=== PATIENT | male | born 1955 | race Caucasian/White ===

== ENCOUNTER → 2018-08-17 09:06 | Outpatient (CLI) | payer OTHER, SELFPAY ==
[2018-08-17 12:33] LABS: Hematocrit 45.4 % (40-54); Hemoglobin 15.4 g/dl (13.0-16.5); Mean Corp Hgb Conc 33.9 g/gl (32-36); Mean Corpuscular Hgb 29.3 pg (27.0-32.0); Mean Corpuscular Volume 86.5 fL (80-94); Mean Platelet Vol. 11.2 fl (6.2-12.0); Platelet Count 251 K/mm3 (150-450); RBC Distribution Width CV 12.7 % (11.6-14.6); RBC Distribution Width SD 39.9 fl (35.1-43.9); Red Blood Count 5.25 M/mm3 (4.6-6.2); White Blood Count 5.9 K/mm3 (4.4-11.0)
[2018-08-17 12:41] LABS: Scan Indicated on CBC? Y/N NO
[2018-08-17 12:43] LABS: Hemoglobin A1c 5.9 % (4.2-6.3)
[2018-08-17 12:47] LABS: Progesterone Level 0.35 ng/mL (See Comment); Vitamin B12 482 pg/mL (211-911); Vitamin D,25 Hydroxy 16.2 ng/mL (29.95-100.01)
[2018-08-17 12:54] LABS: Homocysteine 9.7 umol/L (3.2-10.7)
[2018-08-17 13:40] LABS: ALB/GLOB Ratio 1.1 RATIO (0.9-2.4); AST(SGOT) 20 U/L (15-37); Alanine Aminotransfer ALT/SGPT 38 U/L (16-61); Alkaline Phosphatase 56 U/L (45-117); Anion Gap 6 (5-15); BUN 14 mg/dL (7-18); BUN/Creat Ratio 12.1 RATIO (10-20); CRP, High Sensitivity Cardiac 0.58 mg/L; Calcium,Total 8.8 mg/dL (8.5-10.1); Chloride 106 mmol/L (98-107); Cholesterol 214 mg/dL (200); Creatinine, Serum 1.16 mg/dL (0.70-1.30); EST Glomerular Filtration Rate 67 mL/min (>60); Est Glom Filt Rate - Afr Amer 81 mL/min (>60); Estradiol 29.1 pg/mL; Follicle Stimulating Hormone 25.9 mIU/mL; Free T3 3.1 pg/mL (2.18-3.98); Globulin 3.5 g/dL (2.2-4.2); Glucose 111 mg/dL (74-106); High Density Lipoprotein 49 mg/dL; Iron 117 ug/dL (65-175); Luteinizing Hormone 10.5 mIU/mL; Magnesium 2.3 mg/dL (1.6-2.6); Prolactin 3.7 ng/mL; Protein, Total 7.5 g/dL (6.4-8.2); Sodium Level 141 mmol/L (136-145); T4 Free Direct 0.96 ng/dL (0.76-1.46); T4 Total, Thyroxin 9.1 ug/dL (4.5-12.1); Triglycerides 201 mg/dL; Very Low Density Lipoprotein 40 mg/dL (5-40)
[2018-08-20 16:08] LABS: DHEA Sulfate 132.8 ug/dL (48.9-344.2); Insulin Like Growth Factor 155 ng/mL (49-188); Testosterone, % Free 3.47 % (1.50-4.20); Testosterone, Free 12.94 ng/dL (5.00-21.00)
[2018-08-21 13:50] LABS: Sex Hormone-binding Globulin 39.5 nmol/L (19.3-76.4); Testosterone, Total 373 ng/dL (264-916)
== END ==
PROVIDERS: Family Provider Family Medicine; PCP Family Medicine; Referring Provider Registered Nurse; Visit Provider Registered Nurse
DX: R53.82 Chronic fatigue, unspecified (principal); M62.81 Muscle weakness (generalized); E66.9 Obesity, unspecified
CPT/HCPCS: 36415; 80053; 80061; 82306; 82533; 82607; 82627; 82670; 82746; 83001; 83002; 83036; 83090; 83540; 83735; 84144; 84146; 84153; 84270; 84305; 84402; 84403; 84436; 84439; 84443; 84481; 85027; 86141; 82626; G0103

== ENCOUNTER → 2018-11-06 08:26 | Outpatient (CLI) | payer OTHER, SELFPAY ==
[2018-11-06 10:26] LABS: Hematocrit 48.5 % (40-54); Hemoglobin 16.2 g/dl (13.0-16.5); Mean Corp Hgb Conc 33.4 g/gl (32-36); Mean Corpuscular Hgb 29.4 pg (27.0-32.0); Mean Platelet Vol. 11.5 fl (6.2-12.0); Platelet Count 264 K/mm3 (150-450); RBC Distribution Width CV 13.1 % (11.6-14.6); RBC Distribution Width SD 42.2 fl (35.1-43.9); Red Blood Count 5.51 M/mm3 (4.6-6.2); White Blood Count 6.2 K/mm3 (4.4-11.0)
[2018-11-06 10:38] LABS: Scan Indicated on CBC? Y/N NO
[2018-11-06 10:46] LABS: ALB/GLOB Ratio 1.1 RATIO (0.9-2.4); AST(SGOT) 18 U/L (15-37); Alanine Aminotransfer ALT/SGPT 25 U/L (16-61); Albumin, Serum 3.4 g/dL (3.2-5.0); Alkaline Phosphatase 44 U/L (45-117); Anion Gap 4 (5-15); BUN 12 mg/dL (7-18); BUN/Creat Ratio 9.6 RATIO (10-20); Calcium,Total 8.5 mg/dL (8.5-10.1); Chloride 105 mmol/L (98-107); Creatinine, Serum 1.25 mg/dL (0.70-1.30); EST Glomerular Filtration Rate 62 mL/min (>60); Est Glom Filt Rate - Afr Amer 75 mL/min (>60); Estradiol 82.7 pg/mL; Globulin 3.2 g/dL (2.2-4.2); Glucose 93 mg/dL (74-106); Protein, Total 6.6 g/dL (6.4-8.2); Sodium Level 138 mmol/L (136-145)
[2018-11-06 10:51] LABS: Progesterone Level 1.17 ng/mL (See Comment); Vitamin B12 274 pg/mL (211-911)
[2018-11-06 13:12] LABS: Cholesterol 163 mg/dL (200); High Density Lipoprotein 44 mg/dL; Triglycerides 120 mg/dL; Very Low Density Lipoprotein 24 mg/dL (5-40)
[2018-11-09 08:06] LABS: Testosterone, % Free 3.89 % (1.50-4.20)
[2018-11-09 12:52] LABS: DHEA Sulfate 202.7 ug/dL (48.9-344.2); Testosterone, Total > 1500 ng/dL (264-916)
== END ==
PROVIDERS: Family Provider Family Medicine; PCP Family Medicine; Referring Provider Registered Nurse; Visit Provider Registered Nurse
DX: E29.1 Testicular hypofunction (principal)
CPT/HCPCS: 36415; 80053; 80061; 82306; 82607; 82627; 82670; 82746; 84144; 84402; 84403; 85027; 82626

== ENCOUNTER → 2019-02-09 07:10 | Outpatient (CLI) | payer OTHER, SELFPAY ==
[2019-02-09 10:10] LABS: Hematocrit 49.3 % (40-54); Hemoglobin 16.5 g/dL (13.0-16.5); Mean Corp Hgb Conc 33.5 g/dL (32-36); Mean Corpuscular Hgb 29.9 pg (27.0-32.0); Mean Corpuscular Volume 89.5 fL (80-94); Platelet Count 260 K/mm3 (150-450); RBC Distribution Width CV 12.7 % (11.6-14.6); RBC Distribution Width SD 41.8 fl (35.1-43.9); Red Blood Count 5.51 M/mm3 (4.6-6.2); White Blood Count 7.1 K/mm3 (4.4-11.0)
[2019-02-09 10:28] LABS: Hemoglobin A1c 5.7 % (4.2-6.3)
[2019-02-09 10:56] LABS: ALB/GLOB Ratio 1.2 RATIO (0.9-2.4); AST(SGOT) 21 U/L (15-37); Alanine Aminotransfer ALT/SGPT 30 U/L (16-61); Albumin, Serum 3.7 g/dL (3.2-5.0); Alkaline Phosphatase 43 U/L (45-117); Anion Gap 7 (5-15); BUN 11 mg/dL (7-18); BUN/Creat Ratio 9.1 RATIO (10-20); Calcium,Total 8.7 mg/dL (8.5-10.1); Chloride 104 mmol/L (98-107); Cholesterol 159 mg/dL (200); Creatinine, Serum 1.21 mg/dL (0.70-1.30); EST Glomerular Filtration Rate 64 mL/min (>60); Est Glom Filt Rate - Afr Amer 78 mL/min (>60); Follicle Stimulating Hormone 0.7 mIU/mL; Free T3 3.3 pg/mL (2.18-3.98); Globulin 3.1 g/dL (2.2-4.2); Glucose 103 mg/dL (74-106); High Density Lipoprotein 43 mg/dL; Iron 122 ug/dL (65-175); Luteinizing Hormone < 0.2 mIU/mL; Magnesium 2.1 mg/dL (1.6-2.6); Potassium 3.9 mmol/L (3.5-5.1); Prolactin 14.4 ng/mL; Protein, Total 6.8 g/dL (6.4-8.2); Sodium Level 142 mmol/L (136-145); T4 Free Direct 0.79 ng/dL (0.76-1.46); T4 Total, Thyroxin 6.3 ug/dL (4.5-12.1); Thyroid Stim Hormone (TSH) 2.55 uIU/mL (0.358-3.74); Triglycerides 100 mg/dL; Very Low Density Lipoprotein 20 mg/dL (5-40)
[2019-02-09 11:09] LABS: Vitamin B12 327 pg/mL (211-911); Vitamin D,25 Hydroxy 40.4 ng/mL (29.95-100.01)
[2019-02-12 12:08] LABS: DHEA Sulfate 177.4 ug/dL (48.9-344.2); Insulin Like Growth Factor 166 ng/mL (49-188); Testosterone, % Free 3.76 % (1.50-4.20); Testosterone, Free 46.02 ng/dL (5.00-21.00)
[2019-02-12 16:15] LABS: Sex Hormone-binding Globulin 28.7 nmol/L (19.3-76.4); Testosterone, Total 1224 ng/dL (264-916)
== END ==
PROVIDERS: Family Provider Family Medicine; PCP Family Medicine
DX: M62.81 Muscle weakness (generalized) (principal); E29.1 Testicular hypofunction
CPT/HCPCS: 36415; 80053; 80061; 82306; 82533; 82607; 82627; 82670; 82746; 83001; 83002; 83036; 83090; 83540; 83735; 84146; 84270; 84305; 84402; 84403; 84436; 84439; 84443; 84481; 85027; 86141; 82626

== ENCOUNTER → 2019-05-25 09:46 | Outpatient (CLI) | payer OTHER, SELFPAY ==
[2019-05-25 12:32] LABS: Hematocrit 48.6 % (40-54); Hemoglobin 16.3 g/dL (13.0-16.5); Mean Corp Hgb Conc 33.5 g/dL (32-36); Mean Corpuscular Hgb 29.6 pg (27.0-32.0); Mean Corpuscular Volume 88.2 fL (80-94); Mean Platelet Vol. 11.1 fl (6.2-12.0); Platelet Count 275 K/mm3 (150-450); RBC Distribution Width CV 12.3 % (11.6-14.6); RBC Distribution Width SD 39.9 fl (35.1-43.9); Red Blood Count 5.51 M/mm3 (4.6-6.2); White Blood Count 7.3 K/mm3 (4.4-11.0)
[2019-05-25 12:46] LABS: Progesterone Level 2.64 ng/mL (See Comment); Vitamin B12 362 pg/mL (211-911); Vitamin D,25 Hydroxy 48.8 ng/mL (29.95-100.01)
[2019-05-25 12:47] LABS: ALB/GLOB Ratio 1.1 RATIO (0.9-2.4); AST(SGOT) 16 U/L (15-37); Alanine Aminotransfer ALT/SGPT 34 U/L (16-61); Albumin, Serum 3.7 g/dL (3.2-5.0); Alkaline Phosphatase 42 U/L (45-117); Anion Gap 2 (5-15); BUN 12 mg/dL (7-18); BUN/Creat Ratio 9.4 RATIO (10-20); Calcium,Total 9.1 mg/dL (8.5-10.1); Chloride 103 mmol/L (98-107); Cholesterol 175 mg/dL (200); Creatinine, Serum 1.28 mg/dL (0.70-1.30); EST Glomerular Filtration Rate 60 mL/min (>60); Est Glom Filt Rate - Afr Amer 73 mL/min (>60); Globulin 3.4 g/dL (2.2-4.2); Glucose 105 mg/dL (74-106); High Density Lipoprotein 42 mg/dL; PSA,Total - Annual Screen 0.66 ng/mL (0.00-4.00); Potassium 3.8 mmol/L (3.5-5.1); Protein, Total 7.1 g/dL (6.4-8.2); Sodium Level 137 mmol/L (136-145); Triglycerides 152 mg/dL; Very Low Density Lipoprotein 30 mg/dL (5-40)
[2019-05-25 12:48] LABS: Hemoglobin A1c 5.7 % (4.2-6.3)
[2019-05-29 20:07] LABS: Testosterone, % Free 3.43 % (1.50-4.20); Testosterone, Free 42.88 ng/dL (5.00-21.00)
[2019-05-30 10:31] LABS: Testosterone, Total 1250 ng/dL (264-916)
== END ==
PROVIDERS: PCP Family Medicine; Referring Provider Nurse Practitioner Family; Visit Provider Nurse Practitioner Family
DX: R53.82 Chronic fatigue, unspecified (principal); M62.81 Muscle weakness (generalized)
CPT/HCPCS: 36415; 80053; 80061; 82306; 82607; 82627; 82670; 82746; 83036; 84144; 84153; 84402; 84403; 85027; 82626; G0103

== ENCOUNTER → 2019-11-08 07:16 | Outpatient (CLI) | payer OTHER, SELFPAY ==
[2019-11-08 09:50] LABS: Hemoglobin 16.4 g/dL (13.0-16.5); Mean Corp Hgb Conc 33.5 g/dL (32-36); Mean Corpuscular Hgb 29.9 pg (27.0-32.0); Mean Corpuscular Volume 89.4 fL (80-94); Mean Platelet Vol. 10.8 fl (6.2-12.0); Platelet Count 263 K/mm3 (150-450); RBC Distribution Width CV 12.2 % (11.6-14.6); RBC Distribution Width SD 40.3 fl (35.1-43.9); Red Blood Count 5.48 M/mm3 (4.6-6.2); White Blood Count 6.7 K/mm3 (4.4-11.0)
[2019-11-08 10:06] LABS: Vitamin B12 290 pg/mL (211-911); Vitamin D,25 Hydroxy 93.2 ng/mL
[2019-11-08 10:10] LABS: Hemoglobin A1c 5.5 % (3.8-5.6)
[2019-11-08 10:21] LABS: ALB/GLOB Ratio 1.1 RATIO (0.9-2.4); AST(SGOT) 15 U/L (15-37); Alanine Aminotransfer ALT/SGPT 24 U/L (16-61); Albumin, Serum 3.5 g/dL (3.2-5.0); Alkaline Phosphatase 38 U/L (45-117); Anion Gap 5 (5-15); BUN 12 mg/dL (7-18); BUN/Creat Ratio 9.7 RATIO (10-20); Calcium,Total 8.4 mg/dL (8.5-10.1); Chloride 104 mmol/L (98-107); Cholesterol 169 mg/dL (200); Creatinine, Serum 1.24 mg/dL (0.70-1.30); EST Glomerular Filtration Rate 62 mL/min (>60); Est Glom Filt Rate - Afr Amer 75 mL/min (>60); Estradiol 51.3 pg/mL; Globulin 3.3 g/dL (2.2-4.2); Glucose 113 mg/dL (74-106); High Density Lipoprotein 44 mg/dL; Potassium 3.6 mmol/L (3.5-5.1); Protein, Total 6.8 g/dL (6.4-8.2); Sodium Level 138 mmol/L (136-145); Triglycerides 127 mg/dL; Very Low Density Lipoprotein 25 mg/dL (5-40)
[2019-11-12 12:08] LABS: Testosterone, % Free 2.83 % (1.50-4.20); Testosterone, Free 34.72 ng/dL (5.00-21.00)
[2019-11-12 21:15] LABS: Testosterone, Total 1227 ng/dL (264-916)
== END ==
PROVIDERS: PCP Family Medicine; Visit Provider Nurse Practitioner Family
DX: R53.82 Chronic fatigue, unspecified (principal); M62.81 Muscle weakness (generalized); R68.82 Decreased libido; E66.9 Obesity, unspecified
CPT/HCPCS: 36415; 80053; 80061; 82306; 82607; 82627; 82670; 82746; 83036; 84144; 84402; 84403; 85027; 82626

== ENCOUNTER → 2020-06-02 07:12 | Outpatient (CLI) | payer MEDICARE, SELFPAY ==
[2020-06-02 09:53] LABS: Hemoglobin 15.6 g/dL (13.0-16.5); Mean Corp Hgb Conc 33.2 g/dL (32-36); Mean Corpuscular Hgb 29.4 pg (27.0-32.0); Mean Corpuscular Volume 88.7 fL (80-94); Mean Platelet Vol. 11.5 fl (6.2-12.0); Platelet Count 252 K/mm3 (150-450); RBC Distribution Width CV 12.4 % (11.6-14.6); RBC Distribution Width SD 40.5 fl (35.1-43.9); White Blood Count 6.9 K/mm3 (4.4-11.0)
[2020-06-02 10:11] LABS: Progesterone Level 0.74 ng/mL (See Comment); T3 Total - Triiodothyronine 1.29 ng/mL (0.6-1.81); Vitamin B12 330 pg/mL (211-911); Vitamin D,25 Hydroxy 70.5 ng/mL
[2020-06-02 11:11] LABS: Hemoglobin A1c 5.5 % (3.8-5.6)
[2020-06-02 13:03] LABS: ALB/GLOB Ratio 1.1 RATIO (0.9-2.4); AST(SGOT) 13 U/L (15-37); Alanine Aminotransfer ALT/SGPT 30 U/L (16-61); Albumin, Serum 3.8 g/dL (3.2-5.0); Alkaline Phosphatase 43 U/L (45-117); Anion Gap 4 (5-15); BUN 12 mg/dL (7-18); BUN/Creat Ratio 9.5 RATIO (10-20); CRP, High Sensitivity Cardiac 0.46 mg/L; Calcium,Total 9.1 mg/dL (8.5-10.1); Chloride 105 mmol/L (98-107); Cholesterol 203 mg/dL (200); Creatinine, Serum 1.26 mg/dL (0.70-1.30); EST Glomerular Filtration Rate 61 mL/min (>60); Est Glom Filt Rate - Afr Amer 74 mL/min (>60); Estradiol 42.5 pg/mL; Follicle Stimulating Hormone 1.3 mIU/mL; Globulin 3.4 g/dL (2.2-4.2); Glucose 101 mg/dL (74-106); High Density Lipoprotein 50 mg/dL; Iron 178 ug/dL (65-175); Luteinizing Hormone < 0.2 mIU/mL; Magnesium 2.2 mg/dL (1.6-2.6); PSA,Total - Annual Screen 0.85 ng/mL (0.00-4.00); Potassium 3.8 mmol/L (3.5-5.1); Prolactin 7.6 ng/mL; Protein, Total 7.2 g/dL (6.4-8.2); Sodium Level 140 mmol/L (136-145); T4 Free Direct 0.93 ng/dL (0.76-1.46); T4 Total, Thyroxin 7.1 ug/dL (4.5-12.1); Thyroid Stim Hormone (TSH) 2.12 uIU/mL (0.358-3.74); Triglycerides 113 mg/dL; Very Low Density Lipoprotein 23 mg/dL (5-40)
[2020-06-06 12:07] LABS: Insulin Like Growth Factor 149 ng/mL (59-230); Testosterone, % Free 3.79 % (1.50-4.20); Testosterone, Free 23.27 ng/dL (5.00-21.00)
[2020-06-07 08:48] LABS: Sex Hormone-binding Globulin 24.8 nmol/L (19.3-76.4); Testosterone, Total 614 ng/dL (264-916)
== END ==
PROVIDERS: PCP Family Medicine; Referring Provider Nurse Practitioner Family; Visit Provider Nurse Practitioner Family
DX: M62.81 Muscle weakness (generalized) (principal); R53.82 Chronic fatigue, unspecified; R68.82 Decreased libido; E29.1 Testicular hypofunction
CPT/HCPCS: 36415; 80053; 80061; 82306; 82533; 82607; 82627; 82670; 82746; 83001; 83002; 83036; 83090; 83540; 83735; 84144; 84146; 84153; 84270; 84305; 84402; 84403; 84436; 84439; 84443; 84480; 85027; 86141; 82626; G0103

== ENCOUNTER → 2020-10-03 15:30 | Outpatient (CLI) | payer MEDICARE, SELFPAY ==
[2020-10-03 18:02] LABS: Hematocrit 47.1 % (40-54); Hemoglobin 15.7 g/dL (13.0-16.5); Mean Corp Hgb Conc 33.3 g/dL (32-36); Mean Corpuscular Hgb 29.5 pg (27.0-32.0); Mean Corpuscular Volume 88.4 fL (80-94); Platelet Count 307 K/mm3 (150-450); RBC Distribution Width CV 12.5 % (11.6-14.6); RBC Distribution Width SD 40.3 fl (35.1-43.9); Red Blood Count 5.33 M/mm3 (4.6-6.2); White Blood Count 7.9 K/mm3 (4.4-11.0)
[2020-10-03 18:26] LABS: Vitamin B12 260 pg/mL (211-911); Vitamin D,25 Hydroxy 63.2 ng/mL
[2020-10-03 18:27] LABS: Hemoglobin A1c 5.3 % (3.8-5.6)
[2020-10-03 19:05] LABS: Homocysteine 14.1 umol/L (3.2-10.7)
[2020-10-03 19:17] LABS: BUN 13 mg/dL (7-18); BUN/Creat Ratio 10.3 RATIO (10-20); Creatinine, Serum 1.26 mg/dL (0.70-1.30); Glucose 88 mg/dL (74-106); Protein, Total 7.1 g/dL (6.4-8.2)
[2020-10-03 19:18] LABS: ALB/GLOB Ratio 1.1 RATIO (0.9-2.4); AST(SGOT) 19 U/L (15-37); Alanine Aminotransfer ALT/SGPT 24 U/L (16-61); Albumin, Serum 3.7 g/dL (3.2-5.0); Alkaline Phosphatase 44 U/L (45-117); Cholesterol 174 mg/dL (200); Globulin 3.4 g/dL (2.2-4.2); Magnesium 2.1 mg/dL (1.6-2.6); Potassium 3.8 mmol/L (3.5-5.1); Sodium Level 138 mmol/L (136-145); Triglycerides 179 mg/dL; Very Low Density Lipoprotein 36 mg/dL (5-40)
[2020-10-03 19:19] LABS: Anion Gap 7 (5-15); Chloride 102 mmol/L (98-107); High Density Lipoprotein 52 mg/dL
[2020-10-03 19:20] LABS: CRP < 2.90 mg/L (0.0-3.0); Iron 125 ug/dL (65-175); T4 Total, Thyroxin 6.4 ug/dL (4.5-12.1); Thyroid Stim Hormone (TSH) 1.56 uIU/mL (0.358-3.74)
[2020-10-03 19:42] LABS: EST Glomerular Filtration Rate 61 mL/min (>60); Est Glom Filt Rate - Afr Amer 74 mL/min (>60); Estradiol 91.5 pg/mL; Follicle Stimulating Hormone 0.6 mIU/mL; Luteinizing Hormone < 0.2 mIU/mL; Prolactin 6.7 ng/mL; T4 Free Direct 0.91 ng/dL (0.76-1.46)
[2020-10-04 07:50] LABS: CRP, High Sensitivity Cardiac 0.65 mg/L
[2020-10-08 03:06] LABS: Insulin Like Growth Factor 153 ng/mL (59-230)
[2020-10-08 07:47] LABS: Sex Hormone-binding Globulin 29.8 nmol/L (19.3-76.4); Testosterone, Total > 1500 ng/dL (264-916)
== END ==
PROVIDERS: PCP Family Medicine; Referring Provider Nurse Practitioner Family; Visit Provider Nurse Practitioner Family
DX: R53.82 Chronic fatigue, unspecified (principal); M62.81 Muscle weakness (generalized); E66.9 Obesity, unspecified; E29.1 Testicular hypofunction
CPT/HCPCS: 36415; 80053; 80061; 82306; 82533; 82607; 82627; 82670; 82746; 83001; 83002; 83036; 83090; 83540; 83735; 84144; 84146; 84270; 84305; 84402; 84403; 84436; 84439; 84443; 84480; 85027; 86140; 86141; 82626

== ENCOUNTER → 2020-10-13 10:07 | Outpatient (CLI) | payer MEDICARE, SELFPAY ==
[2020-10-17 09:07] LABS: Testosterone, Free 33.61 ng/dL (5.00-21.00)
[2020-10-17 11:00] LABS: Testosterone, Total 851 ng/dL (264-916)
[2020-10-17 11:01] LABS: Testosterone, % Free 3.95 % (1.50-4.20)
== END ==
PROVIDERS: PCP Family Medicine; Referring Provider Nurse Practitioner Family; Visit Provider Nurse Practitioner Family
DX: R53.82 Chronic fatigue, unspecified (principal); M62.81 Muscle weakness (generalized); E66.9 Obesity, unspecified; E29.1 Testicular hypofunction
CPT/HCPCS: 84402; 84403

== ENCOUNTER → 2021-02-28 09:59 | Outpatient (CLI) | payer MEDICARE, SELFPAY ==
[2021-02-28 12:06] LABS: Hematocrit 45.4 % (40-54); Mean Corpuscular Hgb 29.2 pg (27.0-32.0); Mean Corpuscular Volume 88.3 fL (80-94); Mean Platelet Vol. 10.4 fl (6.2-12.0); Platelet Count 297 K/mm3 (150-450); RBC Distribution Width CV 12.5 % (11.6-14.6); RBC Distribution Width SD 40.8 fl (35.1-43.9); Red Blood Count 5.14 M/mm3 (4.6-6.2); White Blood Count 5.9 K/mm3 (4.4-11.0)
[2021-02-28 12:51] LABS: ALB/GLOB Ratio 0.9 RATIO (0.9-2.4); AST(SGOT) 19 U/L (15-37); Alanine Aminotransfer ALT/SGPT 32 U/L (16-61); Albumin, Serum 3.5 g/dL (3.2-5.0); Alkaline Phosphatase 53 U/L (45-117); Anion Gap 6 (5-15); BUN 15 mg/dL (7-18); BUN/Creat Ratio 12.3 RATIO (10-20); Chloride 106 mmol/L (98-107); Creatinine, Serum 1.22 mg/dL (0.70-1.30); EST Glomerular Filtration Rate 63 mL/min (>60); Est Glom Filt Rate - Afr Amer 76 mL/min (>60); Estradiol 20.8 pg/mL; Follicle Stimulating Hormone 2.2 mIU/mL; Globulin 3.8 g/dL (2.2-4.2); Glucose 109 mg/dL (74-106); Iron 85 ug/dL (65-175); Luteinizing Hormone 0.3 mIU/mL; Magnesium 2.2 mg/dL (1.6-2.6); Potassium 3.7 mmol/L (3.5-5.1); Prolactin 5.3 ng/mL; Protein, Total 7.3 g/dL (6.4-8.2); Sodium Level 141 mmol/L (136-145); T4 Free Direct 0.92 ng/dL (0.76-1.46); T4 Total, Thyroxin 8.5 ug/dL (4.5-12.1)
[2021-02-28 13:38] LABS: Progesterone Level 0.83 ng/mL (See Comment); T3 Total - Triiodothyronine 1.24 ng/mL (0.6-1.81); Vitamin B12 309 pg/mL (211-911)
[2021-03-04 18:06] LABS: Insulin Like Growth Factor 140 ng/mL (59-230); Testosterone, % Free 3.89 % (1.50-4.20); Testosterone, Free 47.11 ng/dL (5.00-21.00)
[2021-03-05 09:33] LABS: Sex Hormone-binding Globulin 26.4 nmol/L (19.3-76.4); Testosterone, Total 1211 ng/dL (264-916)
== END ==
PROVIDERS: PCP Family Medicine; Referring Provider Nurse Practitioner Family; Visit Provider Nurse Practitioner Family
DX: R53.82 Chronic fatigue, unspecified (principal); M62.81 Muscle weakness (generalized); E29.1 Testicular hypofunction
CPT/HCPCS: 36415; 80053; 82533; 82607; 82627; 82670; 82746; 83001; 83002; 83540; 83735; 84144; 84146; 84270; 84305; 84402; 84403; 84436; 84439; 84443; 84480; 85027; 82626

== ENCOUNTER → 2021-03-15 10:15 | Outpatient (CLI) | payer MEDICARE, SELFPAY ==
[2021-03-15 12:25] LABS: Homocysteine 9.9 umol/L (3.2-10.7)
[2021-03-15 12:38] LABS: CRP, High Sensitivity Cardiac 0.25 mg/L; Cholesterol 186 mg/dL (200); High Density Lipoprotein 51 mg/dL; Triglycerides 150 mg/dL; Very Low Density Lipoprotein 30 mg/dL (5-40)
== END ==
PROVIDERS: PCP Family Medicine; Referring Provider Nurse Practitioner Family; Visit Provider Nurse Practitioner Family
DX: R53.82 Chronic fatigue, unspecified (principal); M62.81 Muscle weakness (generalized); E29.1 Testicular hypofunction
CPT/HCPCS: 36415; 80061; 83090; 86141

== ENCOUNTER 2021-07-02 10:59 | Outpatient (CLI) | payer MEDICARE, SELFPAY ==
[2021-07-02 15:24] LABS: Hematocrit 48.9 % (40-54); Hemoglobin 16.4 g/dL (13.0-16.5); Mean Corp Hgb Conc 33.5 g/dL (32-36); Mean Corpuscular Hgb 29.2 pg (27.0-32.0); Mean Platelet Vol. 11.1 fl (6.2-12.0); Platelet Count 274 K/mm3 (150-450); RBC Distribution Width CV 12.2 % (11.6-14.6); Red Blood Count 5.62 M/mm3 (4.6-6.2)
[2021-07-02 15:51] LABS: Progesterone Level 0.62 ng/mL (See Comment); T3 Total - Triiodothyronine 1.14 ng/mL (0.6-1.81); Vitamin B12 419 pg/mL (211-911); Vitamin D,25 Hydroxy 40.5 ng/mL
[2021-07-02 15:56] LABS: Homocysteine 10.5 umol/L (3.2-10.7)
[2021-07-02 15:58] LABS: Hemoglobin A1c 5.6 % (3.8-5.6)
[2021-07-02 17:23] LABS: AST(SGOT) 16 U/L (15-37); Alanine Aminotransfer ALT/SGPT 41 U/L (16-61); Albumin, Serum 4.1 g/dL (3.2-5.0); Alkaline Phosphatase 56 U/L (45-117); Anion Gap 4 (5-15); BUN 13 mg/dL (7-18); BUN/Creat Ratio 11.3 RATIO (10-20); CRP, High Sensitivity Cardiac 0.78 mg/L; Calcium,Total 9.1 mg/dL (8.5-10.1); Chloride 103 mmol/L (98-107); Cholesterol 187 mg/dL (200); Creatinine, Serum 1.15 mg/dL (0.70-1.30); EST Glomerular Filtration Rate 67 mL/min (>60); Est Glom Filt Rate - Afr Amer 82 mL/min (>60); Follicle Stimulating Hormone 3.9 mIU/mL; Glucose 109 mg/dL (74-106); High Density Lipoprotein 49 mg/dL; Iron 193 ug/dL (65-175); Luteinizing Hormone 1.2 mIU/mL; Magnesium 2.4 mg/dL (1.6-2.6); PSA,Total - Annual Screen 0.75 ng/mL (0.00-4.00); Prolactin 3.4 ng/mL; Protein, Total 8.1 g/dL (6.4-8.2); Sodium Level 139 mmol/L (136-145); T4 Free Direct 1.11 ng/dL (0.76-1.46); Thyroid Stim Hormone (TSH) 1.79 uIU/mL (0.358-3.74); Triglycerides 115 mg/dL; Very Low Density Lipoprotein 23 mg/dL (5-40)
[2021-07-06 17:07] LABS: Insulin Like Growth Factor 172 ng/mL (59-230); Testosterone, % Free 2.36 % (1.50-4.20); Testosterone, Free 14.11 ng/dL (5.00-21.00)
[2021-07-06 18:57] LABS: Sex Hormone-binding Globulin 28.9 nmol/L (19.3-76.4); Testosterone, Total 598 ng/dL (264-916)
== END 2021-07-02 23:59 | disposition home or self-care (01) ==
PROVIDERS: PCP Family Medicine; Referring Provider Nurse Practitioner Family; Visit Provider Nurse Practitioner Family
DX: R53.82 Chronic fatigue, unspecified (principal); M62.81 Muscle weakness (generalized); R68.82 Decreased libido; E29.1 Testicular hypofunction; Z12.5 Encounter for screening for malignant neoplasm of prostate; I10 Essential (primary) hypertension; M54.50 Low back pain, unspecified; Z20.822 Contact with and (suspected) exposure to COVID-19
CPT/HCPCS: 36415; 80053; 80061; 82306; 82533; 82607; 82627; 82670; 82746; 83001; 83002; 83036; 83090; 83540; 83735; 84144; 84146; 84153; 84270; 84305; 84402; 84403; 84436; 84439; 84443; 84480; 85027; 86141; 82626; G0103

== ENCOUNTER → 2022-02-18 | Outpatient (CLI) | payer MEDICARE, SELFPAY ==
[2022-02-18 12:25] LABS: Hematocrit 49.1 % (40-54); Hemoglobin 16.6 g/dL (13.0-16.5); Mean Corp Hgb Conc 33.8 g/dL (32-36); Mean Corpuscular Hgb 30.4 pg (27.0-32.0); Mean Corpuscular Volume 89.9 fL (80-94); Mean Platelet Vol. 11.8 fl (6.2-12.0); Platelet Count 229 K/mm3 (150-450); RBC Distribution Width CV 12.7 % (11.6-14.6); RBC Distribution Width SD 41.7 fl (35.1-43.9); Red Blood Count 5.46 M/mm3 (4.6-6.2); White Blood Count 6.3 K/mm3 (4.4-11.0)
[2022-02-18 12:45] LABS: Progesterone Level 1.02 ng/mL (See Comment); Vitamin B12 294 pg/mL (211-911)
[2022-02-18 12:47] LABS: Homocysteine 10.2 umol/L (3.2-10.7)
[2022-02-18 13:31] LABS: AST(SGOT) 14 U/L (15-37); Alanine Aminotransfer ALT/SGPT 27 U/L (16-61); Albumin, Serum 3.6 g/dL (3.2-5.0); Alkaline Phosphatase 40 U/L (45-117); Anion Gap 8 (5-15); BUN 9 mg/dL (7-18); BUN/Creat Ratio 6.9 RATIO (10-20); Chloride 102 mmol/L (98-107); Cholesterol 181 mg/dL (200); EST Glomerular Filtration Rate 58 mL/min (>60); Est Glom Filt Rate - Afr Amer 71 mL/min (>60); Estradiol 47.3 pg/mL; Follicle Stimulating Hormone 0.6 mIU/mL; Globulin 3.5 g/dL (2.2-4.2); Glucose 113 mg/dL (74-106); High Density Lipoprotein 59 mg/dL; Iron 179 ug/dL (65-175); Luteinizing Hormone < 0.2 mIU/mL; Magnesium 1.8 mg/dL (1.6-2.6); Potassium 3.6 mmol/L (3.5-5.1); Prolactin 7.9 ng/mL; Protein, Total 7.1 g/dL (6.4-8.2); Sodium Level 139 mmol/L (136-145); T4 Free Direct 0.85 ng/dL (0.76-1.46); T4 Total, Thyroxin 7.9 ug/dL (4.5-12.1); Thyroid Stim Hormone (TSH) 2.03 uIU/mL (0.358-3.74); Triglycerides 81 mg/dL; Very Low Density Lipoprotein 16 mg/dL (5-40)
[2022-02-18 13:59] LABS: Hemoglobin A1c 5.6 % (3.8-5.6)
[2022-02-27 13:08] LABS: Insulin Like Growth Factor 144 ng/mL (59-230); Testosterone, % Free 4.22 % (1.50-4.20); Testosterone, Free 39.88 ng/dL (5.00-21.00)
[2022-02-27 18:23] LABS: Sex Hormone-binding Globulin 26.3 nmol/L (19.3-76.4); Testosterone, Total 945 ng/dL (264-916)
== END | disposition home or self-care (01) ==
PROVIDERS: PCP Family Medicine; Referring Provider Nurse Practitioner Family; Visit Provider Nurse Practitioner Family
DX: M62.81 Muscle weakness (generalized) (principal); R68.82 Decreased libido; E29.1 Testicular hypofunction
CPT/HCPCS: 36415; 80053; 80061; 82306; 82533; 82607; 82627; 82670; 82746; 83001; 83002; 83036; 83090; 83540; 83735; 84144; 84146; 84270; 84305; 84402; 84403; 84436; 84439; 84443; 84480; 85027; 86141; 82626

== ENCOUNTER → 2022-11-11 | Outpatient (CLI) | payer MEDICARE, SELFPAY | END | disposition home or self-care (01) | LOC: MFPLAB 10:23 | PROVIDERS: PCP Family Medicine; Visit Provider Family Medicine | DX: Z12.5 Encounter for screening for malignant neoplasm of prostate (principal) | CPT/HCPCS: 36415; 84153; G0103 ==

== ENCOUNTER → 2023-11-19 | Outpatient (CLI) | payer MEDICARE, SELFPAY ==
[2023-11-19 15:18] LABS: PSA,Total - Annual Screen 0.37 ng/mL (0.00-4.00)
== END | disposition home or self-care (01) ==
LOC: MTLAB 11:41
PROVIDERS: PCP Family Medicine; Referring Provider Family Medicine; Visit Provider Family Medicine
DX: Z12.5 Encounter for screening for malignant neoplasm of prostate (principal)
CPT/HCPCS: 36415; 84153; G0103

== ENCOUNTER 2024-09-01 20:49 | Emergency (ER) | payer MEDICARE, SELFPAY ==
[2024-09-01 20:51] VITALS: BP 88/64; PULSE 93; RESP 18; TEMP 36.4; O2SAT 96; BMI 25.1
[2024-09-01 21:03] VITALS: BP 121/64; PULSE 90; RESP 20; O2SAT 98
--- NOTE | 2024-09-01 21:27 | ED.VIS.GI ---
HPI HPI - GI History of Present Illness Chief Complaint: Diarrhea Informant: patient Abdominal Pain/Flank Pain Onset: Today Context: Gradual Onset Timing: Continuous Quality: Aching and Burning Location: Diffuse Worsened by: Nothing Relieved by: Nothing Nausea/Vomiting/Emesis GI Symptom: Positive for Nausea and Vomiting Onset: Today Quality: Positive for Nonbilious; Negative for Blood streaks, Coffee ground or Hematemesis Diarrhea/Melena/Hematochezia GI Symptom: Positive for Diarrhea; Negative for Melena or Hematochezia Onset: Today Stool Quality: Positive for Watery Associated Symptoms Associated Symptoms: Negative for Dysuria, Frequency or Hematuria Narrative Narrative: The patient presents with abdominal pain, nausea, vomiting, and diarrhea that began this morning. Patient states that it is gradually gotten worse throughout the day. Patient states it woke him up early this morning. Patient describes his pain as aching and burning. Patient states his pain started in the epigastric area but is now diffuse across his abdomen. Patient states nothing makes it better and nothing makes it worse. Patient admits to some nausea and vomiting but denies any hematemesis or coffee-ground emesis. Patient admits to some diarrhea. Patient states it is watery. Patient denies any melena or hematochezia. Patient denies any urinary complaints. Patient denies any fevers or chills. PFSH PFSH Medical History no medical history no medical history Home Medications ?Medication ?Instructions ?Recorded ?Last Taken ?Type ciprofloxacin HCl 500 mg tablet 500 mg PO BID #20 TABLETS 09/02/24 Unknown Rx metronidazole 500 mg tablet 500 mg PO Q6H #40 tabs 09/02/24 Unknown Rx ondansetron 4 mg disintegrating 4 mg PO Q8H PRN PRN Nausea #10 tabs 09/02/24 Unknown Rx tablet Allergy/AdvReac Type Severity Reaction Status Date / Time No Known Allergies Allergy Verified 09/01/24 20:51 Surgical History no surgical history no surgical history Social History Smoking Status: Never smoker ROS ROS ED Constitutional Constitutional ED: Denies chills or fever(s) Eyes Eyes: Denies blurry vision or change in vision ENT ENT ED: Reports rhinorrhea; Denies sore throat Cardiovascular Cardiovascular: Denies chest pain or palpitations Respiratory/Chest Respiratory/Chest: Denies cough or dyspnea Gastrointestinal Gastrointestinal: Reports abdominal pain, diarrhea, nausea and vomiting; Denies melena Genitourinary Genitourinary ED: Denies dysuria or hematuria Musculoskeletal Musculoskeletal: Denies back pain or neck pain Integumentary Denies abscess or rash Neurologic Neurologic: Denies headache(s) or weakness Allergic/Immunologic Allergic/Immunologic ED: Denies mouth swelling or urticaria EXAM Physical Exam Const Vital Signs: 09/01/24 20:51 09/01/24 21:03 09/01/24 22:00 Temperature 97.6 F L Temperature Source Temporal Pulse Rate 93 90 95 Respiratory Rate 18 20 H 19 H Blood Pressure 88/64 L 121/64 H 118/78 Blood Pressure Mean 72 83 91 Pulse Ox 96 98 97 Oxygen Delivery Method Room Air Room Air Room Air 09/01/24 23:00 09/02/24 00:00 Temperature Temperature Source Pulse Rate 86 81 Respiratory Rate 17 16 Blood Pressure 115/75 110/71 Blood Pressure Mean 88 84 Pulse Ox 98 98 Oxygen Delivery Method Room Air Room Air Positive well nourished and well developed Constitutional Narrative: BMI is 25.1 General Appearance ED: well developed and NAD HEENT Reports moist mucous membranes normocephalic and atraumatic Neck supple and no JVD Resp normal respiratory effort and clear to auscultation bilaterally Cardio regular rate and regular rhythm GI Inspection: abdominal distention Palpation: soft and tender epigastric, LLQ, RLQ, LUQ, RUQ, periumbilical and suprapubic Neuro CN's II-XII intact bilaterally, moves all extremities and no sensory deficits noted Sensorium / Orientation: alert Motor Exam: strength 5/5 throughout Psych mental status grossly normal and thought process normal MDM MDM MDM Narrative Medical decision making narrative: Differential diagnosis includes bowel obstruction, perforation, gastroenteritis, cholecystitis, cholelithiasis, pancreatitis, colitis, urinary tract infection, pyelonephritis, and dehydration. CBC will be obtained to assess for leukocytosis and anemia. Comprehensive metabolic profile will be obtained to assess for hepatic function, renal function, and electrolyte abnormality. Lipase will be obtained to assess for pancreatitis. Urinalysis will be obtained to assess for urinary tract infection and hematuria. Serum lactate will be obtained to assess for sepsis. CT scan of the abdomen and pelvis will be obtained to assess for bowel obstruction, perforation, pancreatitis, and colitis. Urinalysis will be obtained to assess for urinary tract infection and hematuria. History & Record Review Additional record(s) reviewed:: Prior labs Lab Data Attestation: I reviewed the patient's lab results. Lab results narrative: CBC was reviewed. There is a leukocytosis of 14.7. Hemoglobin was slightly elevated at 16.7. The remainder was within normal limits. Comprehensive metabolic profile was reviewed. BUN was slightly elevated at 22 and creatinine was 1.56. Glucose was elevated at 231. ALT was slightly elevated at 68. AST was normal at 38. Lipase was reviewed and was normal at 21. Urinalysis was reviewed. Leukocyte esterase was 25. Urine glucose was 100. Urine bilirubin was 1. There is no evidence of urinary tract infection or hematuria. Serum lactate was reviewed and was minimally elevated at 2.1. Labs: Laboratory Results - last 24 hr 09/01/24 09/01/24 09/01/24 21:08 23:20 23:33 WBC 14.7 H RBC 5.49 Hgb 16.7 H Hct 47.8 MCV 87.1 MCH 30.4 MCHC 34.9 RDW Std Deviation 40.5 RDW Coeff of Virgen 12.8 Plt Count 303 MPV 11.6 Immature Gran % (Auto) 0.500 Neut % (Auto) 77.6 H Lymph % (Auto) 8.4 L Hodgeman % (Auto) 8.0 Eos % (Auto) 5.3 H Baso % (Auto) 0.2 Absolute Neuts (auto) 11.4 H Absolute Lymphs (auto) 1.23 Nucleated RBC % 0 Sodium 137 Potassium 3.6 Chloride 102 Carbon Dioxide 18.4 L Anion Gap 17 H BUN 22 H Creatinine 1.56 H Estim Creat Clear Calc 46.93 L Est GFR (MDRD) Non-Af 47 L BUN/Creatinine Ratio 13.9 Glucose 231 H Lactic Acid 2.1 H* Calcium 9.9 Total Bilirubin 0.85 AST 38 ALT 68 H Alkaline Phosphatase 76 Total Protein 7.3 Albumin 4.2 Globulin 3.1 Albumin/Globulin Ratio 1.3 Lipase 21 Urine Color Yellow Urine Clarity Clear Urine pH 5.0 Ur Specific Gall[place] 1.010 Urine Protein TNP Urine Glucose (UA) 100 H Urine Ketones Negative Urine Occult Blood 10 H Urine Nitrite Negative Urine Bilirubin 1 H Urine Urobilinogen Normal Ur Leukocyte Esterase 25 H Urine RBC 0 SEEN Urine WBC 0 SEEN Ur Squamous Epith Cells 0 SEEN Urine Bacteria 0 SEEN Urine Mucus 0 SEEN U Random Total Protein 04/30/25 23:43 WBC RBC Hgb Hct MCV MCH MCHC RDW Std Deviation RDW Coeff of Virgen Plt Count MPV Immature Gran % (Auto) Neut % (Auto) Lymph % (Auto) Hodgeman % (Auto) Eos % (Auto) Baso % (Auto) Absolute Neuts (auto) Absolute Lymphs (auto) Nucleated RBC % Sodium Potassium Chloride Carbon Dioxide Anion Gap BUN Creatinine Estim Creat Clear Calc Est GFR (MDRD) Non-Af BUN/Creatinine Ratio Glucose Lactic Acid Calcium Total Bilirubin AST ALT Alkaline Phosphatase Total Protein Albumin Globulin Albumin/Globulin Ratio Lipase Urine Color Urine Clarity Urine pH Ur Specific Gall[place] Urine Protein Urine Glucose (UA) Urine Ketones Urine Occult Blood Urine Nitrite Urine Bilirubin Urine Urobilinogen Ur Leukocyte Esterase Urine RBC Urine WBC Ur Squamous Epith Cells Urine Bacteria Urine Mucus U Random Total Protein 14.5 H Radiography Diagnostic Testing: Clinical Impression(s) from Imaging Studies Abdomen/Pelvis CT 09/01/24 21:55 IMPRESSION: Findings compatible with acute infectious enterocolitis. Nonspecific small focus of portal venous gas within hepatic segments II-IV. Red Alert: The critical information above was relayed directly by me by telephone to Freddy Beltran on 09/01/2024 at 11:04 pm with readback verification. [facility] [place] scan of the abdomen and pelvis was obtained. There is acute infectious enterocolitis. There is a small focus of nonspecific portal venous gas. This was interpreted by the radiologist was also independently reviewed by myself. Additional Tests and Interventions Additional Tests or Interventions: Because of the finding of the small focus of portal venous gas, serum lactate was added to rule out bowel ischemia. Treatment and Re-Evaluation :: Patient was given IV fluids, morphine, and Zofran. Patient was feeling better on reevaluation. Patient was advised of his findings. Patient was given a dose of Cipro and Flagyl. Patient wants to go home. Patient was given repeat bolus of normal saline. I do not feel the patient has ischemic bowel. Patient was given prescriptions for Cipro and Flagyl. Patient was instructed to drink plenty of fluids. Patient was also given a prescription for Zofran. Patient was instructed to continue to monitor his blood sugars at home. Patient was instructed to follow-up with his primary care physician in 3 to 5 days for further evaluation. Patient was instructed to return if worse in any way. Patient understood and was agreeable with the plan. All questions were answered. Discharge Plan Triage Chief Complaint: Diarrhea ED Provider: Freddy Beltran Dx/Rx/DC Orders Clinical Impression: Enterocolitis, Nausea, vomiting, and diarrhea, Dehydration, Hyperglycemia Instructions: ED Understanding Colitis, ED Dehydration (Adult) Prescriptions: New metronidazole 500 mg tablet 500 mg PO Q6H Qty: 40 0RF ciprofloxacin HCl 500 mg tablet 500 mg PO BID Qty: 20 0RF ondansetron 4 mg tablet,disintegrating 4 mg PO Q8H PRN PRN (Reason: Nausea) Qty: 10 0RF Primary Care Provider: Delilah Quiroga Referrals: Delilah Quiroga MD [Primary Care Provider] - 3-5 Days Print Language: Chilean Disposition Disposition: Home, Self Care
--- NOTE | 2024-09-01 21:55 | CT_ITS ---
PROCEDURE: ABDOMEN/PELVIS W IV CONT ONLY 09/01/2024 REASON FOR EXAM: ABDOMINAL PAIN TECHNIQUE: Abdomen and pelvis CT with intravenous contrast. Coronal and Sagittal reconstruction series were provided. PATIENT PREPARATION: Per protocol ORAL CONTRAST TYPE: None. AMOUNT: mL CONTRAST: Omnipaque 350 VOLUME: 100 mL Not Provided Gauge IV One or more dose reduction techniques were used (e.g., Automated exposure control, adjustment of the mA and/or kV according to patient size, use of iterative reconstruction technique. COMPARISON: None FINDINGS: Lung bases: Mild basilar atelectasis. Liver: Homogeneous attenuation. Subcentimeter low-attenuation lesions, too small to characterize and likely benign. However, there is small focus of portal venous gas in segments II-IV (series 2 images 17-31). Gallbladder: Cholelithiasis. No ductal dilation Spleen: Splenic granulomas. No splenomegaly. Pancreas: Normal size without evidence of mass surrounding inflammation or ductal dilation. Adrenals: Unremarkable. Kidneys: Homogeneous attenuation. Bilateral simple cysts. No calculi or hydronephrosis. Bladder: Urinary bladder is unremarkable. Reproductive Organs: No prostatomegaly. Bowel: Small hiatal hernia. Stomach is otherwise unremarkable. Multiple fluid- filled nondilated small bowel and colonic loops, with scattered areas of mild bowel wall thickening and submucosal hyperemia. Findings concerning for acute infectious and/or colitis. Appendix: Normal appendix. Lymph nodes: No suspicious lymph node enlargement. Vasculature: The abdominal aorta and IVC are normal. Diffuse atherosclerotic calcification. Peritoneum / Retroperitoneum: No ascites. Bones: No suspicious osseous lesions. CT/Abdomen/Pelvis W IV Cont ONLY IMPRESSION: Findings compatible with acute infectious enterocolitis. Nonspecific small focus of portal venous gas within hepatic segments II-IV. Red Alert: The critical information above was relayed directly by me by telephone to Freddy Marcelino on 09/01/2024 at 11:04 pm with readback verification. Reading Location: [facility]
[2024-09-01 22:00] VITALS: BP 118/78; PULSE 95; RESP 19; O2SAT 97
[2024-09-01] MEDS: 0.9% Normal Saline (1000mL) 1,000 ML 999 ML IV (22:10)
[2024-09-01] MEDS: Ondansetron 4 MG/2 ML Vial IV (22:11)
[2024-09-01] MEDS: Morphine 4 MG/ML Syringe IV (22:12)
[2024-09-01 22:14] LABS: Absolute Lymphocyte Count 1.23 X10^3/uL (0.83-4.51); Absolute Neutrophil Count 11.4 X10^3/uL (2.0-7.7); Basophil# 0.03 X10^3/uL; Basophil% 0.2 % (0-1); Eosinophil# 0.78 X10^3/uL; Eosinophils% 5.3 % (0-5); Hematocrit 47.8 % (40-54); Hemoglobin 16.7 g/dL (13.0-16.5); Lymphocyte # 1.23 X10^3/ul (0.83-4.51); Lymphocyte % 8.4 % (19-41); Mean Corp Hgb Conc 34.9 g/dL (32-36); Mean Corpuscular Hgb 30.4 pg (27.0-32.0); Mean Corpuscular Volume 87.1 fL (80-94); Mean Platelet Vol. 11.6 fl (6.2-12.0); Monocyte# 1.18 X10^3/uL; NRBC Flagged by Analyzer 0 % (0-5); Neutrophil # 11.39 X10^3/uL (2.7-7.7); Neutrophil % 77.6 % (47-70); Platelet Count 303 K/mm3 (150-450); RBC Distribution Width CV 12.8 % (11.6-14.6); RBC Distribution Width SD 40.5 fl (35.1-43.9); Red Blood Count 5.49 M/mm3 (4.6-6.2); White Blood Count 14.7 K/mm3 (4.4-11.0)
[2024-09-01 23:00] VITALS: BP 115/75; PULSE 86; RESP 17; O2SAT 98
[2024-09-01 23:05] LABS: ALB/GLOB Ratio 1.3 RATIO (0.9-2.4); AST(SGOT) 38 U/L (<=37); Alanine Aminotransfer ALT/SGPT 68 U/L (<=46); Albumin, Serum 4.2 g/dL (3.4-4.8); Alkaline Phosphatase 76 U/L (40-129); Anion Gap 17 (5-15); BUN 22 mg/dL (4-19); BUN/Creat Ratio 13.9 RATIO (10-20); Calcium,Total 9.9 mg/dL (7.6-11.0); Carbon Dioxide 18.4 mmol/L (21.0-32.0); Chloride 102 mmol/L (98-108); Creatinine, Serum 1.56 mg/dL (0.70-1.20); EST Glomerular Filtration Rate 47 (>60); Estimated Creatinine Clearance 46.93 ml/min (50-250); Globulin 3.1 g/dL (2.2-4.2); Glucose 231 mg/dL (70-99); Lipase 21 U/L (13-75); Potassium 3.6 mmol/L (3.3-5.1); Protein, Total 7.3 g/dL (5.9-8.4); Sodium Level 137 mmol/L (133-145); Total Bilirubin 0.85 mg/dL (0.00-1.30)
[2024-09-01 23:29] LABS: Bacteria 0 SEEN /hpf (None Seen); Mucous, Urine 0 SEEN /hpf (<or=2+); Red Blood Cells-Urine 0 SEEN /hpf (0-5); Squamous Epithelial Cells - UA 0 SEEN /hpf (0-5); White Blood Cells 0 SEEN /hpf (0-5)
[2024-09-01 23:31] LABS: Color, Urine Yellow (Yellow); Glucose, Dipstick 100 mg/dl (Normal); Ketone-Dipstick Negative (Negative); Leukocyte Esterase-Dipstick 25 /ul (Negative); Nitrite-Dipstick Negative (Negative); Occult Blood-Urine 10 /ul (Negative); Urine Clarity Clear (Clear); Urine Urobilinogen Normal (Normal)
[2024-09-01 23:42] LABS: Urine Bilirubin Dipstick 1 mg/dL (Negative)
[2024-09-02] VITALS: BP 110/71; PULSE 81; RESP 16; O2SAT 98
[2024-09-02 00:10] LABS: Protein, Urine (Random) 14.5 mg/dL (0.0-12.0)
[2024-09-02] MEDS: Ciprofloxacin 400 MG/200 ML BAG 200 MG IV (00:21)
[2024-09-02 00:28] LABS: Lactic Acid 2.1 mmol/L (0.0-2.0)
[2024-09-02] MEDS: 0.9% Normal Saline (1000mL) 1,000 ML 1000 ML IV (00:38)
[2024-09-02 01:00] VITALS: BP 109/65; PULSE 67; RESP 14; O2SAT 93
[2024-09-02] MEDS: metroNIDAZOLE 500 MG/100 ML BAG 100 MG IV (01:36)
[2024-09-02 02:00] VITALS: BP 105/65; PULSE 66; RESP 12; O2SAT 97
[2024-09-02 03:01] VITALS: BP 104/62; PULSE 81; RESP 16; TEMP 36.9; O2SAT 99
[2024-09-02 03:36] LABS: Reflex Lactate? Y
== END 2024-09-02 03:02 | disposition home or self-care (01) ==
PROVIDERS: Emergency Provider Emergency Medicine; PCP Family Medicine; Visit Provider Emergency Medicine
DX: K52.9 Noninfective gastroenteritis and colitis, unspecified (principal); E86.0 Dehydration; R73.9 Hyperglycemia, unspecified
CPT/HCPCS: 74177; 80053; 81001; 83605; 83690; 84156; 85025; 96361; 96365; 96367; 96375; 99283; Q9967; A4216; J0744; J2405

== ENCOUNTER → 2024-09-03 | Outpatient (CLI) | payer MEDICARE, SELFPAY ==
[2024-09-03 18:05] LABS: ALB/GLOB Ratio 1.5 RATIO (0.9-2.4); AST(SGOT) 36 U/L (<=37); Alanine Aminotransfer ALT/SGPT 56 U/L (<=46); Alkaline Phosphatase 61 U/L (40-129); Anion Gap 10 (5-15); BUN 13 mg/dL (4-19); BUN/Creat Ratio 9.9 RATIO (10-20); Calcium,Total 9.3 mg/dL (7.6-11.0); Chloride 101 mmol/L (98-108); EST Glomerular Filtration Rate 59 (>60); Globulin 2.6 g/dL (2.2-4.2); Glucose 122 mg/dL (70-99); Potassium 3.7 mmol/L (3.3-5.1); Protein, Total 6.6 g/dL (5.9-8.4); Sodium Level 138 mmol/L (133-145); Total Bilirubin 0.55 mg/dL (0.00-1.30)
== END | disposition home or self-care (01) ==
LOC: MTLAB 15:18
PROVIDERS: PCP Family Medicine; Referring Provider Family Medicine; Visit Provider Family Medicine
DX: R74.8 Abnormal levels of other serum enzymes (principal)
CPT/HCPCS: 36415; 80053

== ENCOUNTER → 2024-09-29 | Outpatient (CLI) | payer MEDICARE, SELFPAY ==
[2024-09-29 12:32] LABS: Hematocrit 39.4 % (40-54); Hemoglobin 13.3 g/dL (13.0-16.5); Mean Corp Hgb Conc 33.8 g/dL (32-36); Mean Corpuscular Volume 88.9 fL (80-94); Mean Platelet Vol. 11.3 fl (6.2-12.0); Platelet Count 270 K/mm3 (150-450); RBC Distribution Width CV 12.5 % (11.6-14.6); Red Blood Count 4.43 M/mm3 (4.6-6.2); White Blood Count 10.4 K/mm3 (4.4-11.0)
[2024-09-29 12:54] LABS: ALB/GLOB Ratio 1.3 RATIO (0.9-2.4); AST(SGOT) 24 U/L (<=37); Alanine Aminotransfer ALT/SGPT 35 U/L (<=46); Albumin, Serum 3.9 g/dL (3.4-4.8); Alkaline Phosphatase 60 U/L (40-129); Anion Gap 12 (5-15); BUN 13 mg/dL (4-19); BUN/Creat Ratio 11.6 RATIO (10-20); Calcium,Total 9.3 mg/dL (7.6-11.0); Carbon Dioxide 23.6 mmol/L (21.0-32.0); Chloride 103 mmol/L (98-108); EST Glomerular Filtration Rate 72 (>60); Globulin 2.9 g/dL (2.2-4.2); Glucose 167 mg/dL (70-99); Potassium 3.3 mmol/L (3.3-5.1); Protein, Total 6.8 g/dL (5.9-8.4); Sodium Level 138 mmol/L (133-145); Total Bilirubin 0.83 mg/dL (0.00-1.30)
== END | disposition home or self-care (01) ==
PROVIDERS: PCP Family Medicine; Referring Provider Family Medicine; Visit Provider Family Medicine
DX: R19.7 Diarrhea, unspecified (principal); R10.9 Unspecified abdominal pain
CPT/HCPCS: 36415; 80053; 85027; 87493

== ENCOUNTER → 2024-11-18 | Outpatient (CLI) | payer MEDICARE, SELFPAY ==
[2024-11-18 11:26] LABS: AST(SGOT) 27 U/L (<=37); Alanine Aminotransfer ALT/SGPT 36 U/L (<=46); Albumin, Serum 4.2 g/dL (3.4-4.8); Alkaline Phosphatase 59 U/L (40-129); Anion Gap 12 (5-15); BUN 17 mg/dL (4-19); BUN/Creat Ratio 15.8 RATIO (10-20); Calcium,Total 9.4 mg/dL (7.6-11.0); Carbon Dioxide 24.4 mmol/L (21.0-32.0); Chloride 102 mmol/L (98-108); Cholesterol 224 mg/dL (<=200); Globulin 2.8 g/dL (2.2-4.2); Glucose 144 mg/dL (70-99); Low Density Lipoprotein Calc. 126 mg/dL; PSA,Total - Annual Screen 0.67 ng/mL (0.02-4.00); Potassium 3.8 mmol/L (3.3-5.1); Triglycerides 212 mg/dL; Very Low Density Lipoprotein 42 mg/dL (5-40); cholesterol:hdl ratio screen 3.99
--- OUTSIDE RECORDS SUMMARY | 2024-11-18 11:32 | XMS RPT_ITS | CCD ---
Author Organization [facility] Care Team Providers Care Superintendent Maintenance Name Role Phone Kimber HOLLAND, Dr. Delilah Luo Primary Care Provider Devin ZAVALA, Dr. Hayes Attending Provider Dr. Freddy Beltran DO Emergency Provider Katie HOLLAND, Dr. Payne Primary Care Provider Katie HOLLAND, Dr. Payne Attending Provider Katie HOLLAND, Dr. Payne Referring Provider Delilah Quiroga Referring Unavailable Delilah Quiroga Attending Unavailable Delilah Quiroga Primary Care Unavailable Elmer Wilson Attending Unavailable Elmer Wilson Primary Care Unavailable Elmer Wilson Referring Unavailable Freddy Beltran Attending Unavailable Delilah Quiroga Primary Care Unavailable Elmer Wilson Referring Unavailable Elmer Wilson Attending Unavailable Elmer Wilson Primary Care Unavailable Medications Current Medications Medication Drug Class(es) Dates Sig (Normalized) Sig (Original) ciprofloxacin 500 mg oral tablet (2 sources) Quinolone Antimicrobial Start: 09-02-2024 take 1 tablet by mouth twice daily Ciprofloxacin Hcl 500 mg tablet Active 500 mg PO TWICE A DAY September 02, 2024 12:00am metroNIDAZOLE 500 mg oral tablet (2 sources) Nitroimidazole Antimicrobial Start: 09-02-2024 take 1 tablet by mouth every six hours Metronidazole 500 mg tablet Active 500 mg PO EVERY 6 HOURS September 02, 2024 12:00am ondansetron 4 mg disintegrating oral tablet (2 sources) Serotonin-3 Receptor Antagonist Start: 09-02-2024 take 1 tablet by mouth every eight hours as needed for nausea Ondansetron 4 mg tablet,disintegrat ing Active 4 mg PO EVERY 8 HOURS NEEDED as needed for Nausea September 02, 2024 12:00am Problems Active Problems Problem Classification Problem Date Documented Da te Episodic/Chronic Diabetes mellitus without complication (2 sources) Hyperglycemia; Translations: [Hyperglycemia, unspecified] 09-02-2024 Episodic Fluid and electrolyte disorders (2 sources) Dehydration; Translations: [Dehydration] 09-02-2024 Episodic Nausea and vomiting (2 sources) Nausea, vomiting and diarrhea; Translations: [Nausea with vomiting, unspecified] 09-02-2024 Episodic Noninfectious gastroenteritis (2 sources) Enterocolitis; Translations: [Noninfective gastroenteritis and colitis, unspecified] 09-02-2024 Episodic Other gastrointestinal disorders (1 source) Diarrhea, unspecified; Translations: [Diarrhea, unspecified] Onset: 10-11-2024 Episodic Other liver diseases (1 source) Abnormal levels of other serum enzymes; Translations: [Abnormal levels of other serum enzymes] Onset: 09-08-2024 Episodic Past or Other Problems Problem Classification Problem Date Documented Da te Episodic/Chronic Other screening for suspected conditions (not mental disorders or infectious disease) (1 source) Encounter for screening for malignant neoplasm of prostate; Translations: [Encounter for screening for malignant neoplasm of prostate] Onset: 12-08-2023 Episodic Results Test Name Value Interpretation Reference Range Facility [id number] 10-04-2024 [facility] [place]. COMMENT Normal . [facility] Comment on above: Order Comment: [id number] STOOL CULTURE Result Comment: Test Ordered: [id number] Stool Culture Salmonella/Shigella Screen Note: Final report Reference Range: . Result 1 Comment CB Reference Range: . No Salmonella or Shigella recovered. Campylobacter Culture Note: Final report Reference Range: . Result 1 Comment Reference Range: . No Campylobacter species isolated. E coli Shiga Toxin EIA Negative Reference Range: Negative Performed at: - [facility] [address] [id number] Pier Hand: Khari Alexandre PhD, Phone: [phone] Performed By: #### M 451.4680, M190.0199, L3410.9992 #### [facility] [place], [address] Anion gap in Serum or Plasma Ordered By: Elmer Wilson on 09-29-2024 Anion gap [Moles/Vol] 12 mmol/L 5-15 [facility] BUN/creatinine ratioOrdered By: Elmer Wilson on 09-29-2024 Urea nitrogen/Creatinine [Mass ratio] 11.6 mg/mg 10-20 [facility] Bilirubin, totalOrdered By: Elmer Wilson on 09-29-2024 Bilirubin [Mass/Vol] 0.83 mg/dL 0.00-1.30 [facility] CBC-Complete Blood Cnt No Di ffon 09-29-2024 Erythrocyte distribution width (RBC) [Ratio] 12.5 % Normal 11.6-14.6 [facility] Comment on above: Performed By: #### L 500.4050, L100.0500 #### [facility] [address] [place], [address] Hematocrit (Bld) [Volume fraction] 39.4 % Low 40-54 [facility] Comment on above: Performed By: #### L [id number], L100.0500 #### [facility] [address] [place], [address] Hemoglobin (Bld) [Mass/Vol] 13.3 g/dL Normal 13.0-16.5 [facility] Comment on above: Performed By: #### L [id number], L100.0500 #### [facility] [address] [place], [address] MCH (RBC) [Entitic mass] 30.0 pg Normal 27.0-32.0 [facility] Comment on above: Performed By: #### L [id number], L100.0500 #### [facility] [address] [place], [address] MCHC (RBC) [Mass/Vol] 33.8 g/dL Normal 32-36 [facility] Comment on above: Performed By: #### L [id number], L100.0500 #### [facility] [address] [place], [address] MCV (RBC) [Entitic vol] 88.9 fL Normal 80-94 [facility] Comment on above: Performed By: #### L [id number], L100.0500 #### [facility] [address] [place], [address] Platelet mean volume (Bld) [Entitic vol] 11.3 fL Normal 6.2-12.0 [facility] Comment on above: Performed By: #### L [id number], L100.0500 #### [facility] [address] [place], [address] Platelets (Bld) [#/Vol] 270 10*3/uL Normal 150-450 [facility] Comment on above: Performed By: #### L 500.4050, L100.0500 #### [facility] [address] [place], [address] RBC (Bld) [#/Vol] 4.43 10*6/uL Low 4.6-6.2 [facility] Comment on above: Performed By: #### L 500.4050, L100.0500 #### [facility] [address] [place], [address] RDW SD 41.0 fl Normal 35.1-43.9 [facility] Comment on above: Performed By: #### L 500.4050, L100.0500 #### [facility] [address] [place], [address] WBC (Bld) [#/Vol] 10.4 10*3/uL Normal 4.4-11.0 [facility] Comment on above: Performed By: #### L 500.4050, L100.0500 #### [facility] [address] [place], [address] CDIFF (PCR)on 09-29-2024 CDIFF A positive C. difficile molecular test does not differentiate between an active C. difficile infection and C. difficile colonization. Use clinical judgement and paired toxin/antigen testing to identify true infection and need for treatment. C diff DNA Spec Ql LEONARDA+probe Reference Range: Negative CepKreyonicid GeneXpert: polymerase chain reaction (PCR) [id number] [id number] Presumptive Negative *for epidemiolologic???u se C. Diff PCR A Positive-Toxigenic C. Difficile Detected A Normal [facility] Comment on above: Performed By: #### M 100.6795, M100.6796, L3410.9992 #### [facility] [address] [facility] [address] [place], [place], [address] Carbon dioxide, total [Moles /volume] in Central venous bloodOrdered By: Elmer Wilson on 09-29-2024 CO2 [Moles/Vol] 23.6 mmol/L 21.0-32.0 [facility] Chloride assayOrdered By: Kashmir Wilson on 09-29-2024 Chloride [Moles/Vol] 103 mmol/L 98-108 [facility] Clostridium Diff Toxin/Agon 09-29-2024 CDIFF (EIA) Interpretation of C. diff by EIA Method C diff Stl Ql POS for Antigen and NEG for Toxin = Positive for toxigenic C. Difficile gene but the active toxin production NOT detected. May be a colonized carrier or toxin level is below limit of detection. C. difficile Antigen A Positive C. diff A/B Antigen A C. difficile Toxin Negative C. diff Toxin Normal [facility] Comment on above: Performed By: #### M [id number], M100.6796, L3410.9992 #### [facility] [address] [facility] [address] [place], [place], [address] Clostridium difficile detect ion by polymerase chain reactionOrdered By: Elmer Wilson on 09-29-2024 C. difficile DNA LEONARDA+probe Ql (Unsp spec) [facility] Comprehensive Metabolic Prof ilon 09-29-2024 Albumin [Mass/Vol] 3.9 g/dL Normal 3.4-4.8 [facility] Comment on above: Order Comment: STOOL KIT GIVEN TO BRING BACK Performed By: #### L 500.4050, L100.0500 #### [facility] [address] [place], [address] Albumin/Globulin [Mass ratio] 1.3 {ratio} Normal 0.9-2.4 [facility] Comment on above: Order Comment: STOOL KIT GIVEN TO BRING BACK Performed By: #### L 500.4050, L100.0500 #### [facility] [address] [place], [address] ALK PHOS 60 U/L Normal 40-129 [facility] Comment on above: Order Comment: STOOL KIT GIVEN TO BRING BACK Performed By: #### L 500.4050, L100.0500 #### [facility] [address] [place], [address] ALT [Catalytic activity/Vol] 35 U/L Normal <=46 [facility] Comment on above: Order Comment: STOOL KIT GIVEN TO BRING BACK Performed By: #### L 500.4050, L100.0500 #### [facility] [address] [place], [address] AST [Catalytic activity/Vol] 24 U/L Normal <=37 [facility] Comment on above: Order Comment: STOOL KIT GIVEN TO BRING BACK Performed By: #### L 500.4050, L100.0500 #### [facility] [address] [place], [address] Bilirubin [Mass/Vol] 0.83 mg/dL Normal 0.00-1.30 [facility] Comment on above: Order Comment: STOOL KIT GIVEN TO BRING BACK Performed By: #### L 500.4050, L100.0500 #### [facility] [address] [place], [address] BUN/CRE 11.6 RATIO Normal 10-20 [facility] Comment on above: Order Comment: STOOL KIT GIVEN TO BRING BACK Performed By: #### L 500.4050, L100.0500 #### [facility] [address] [place], [address] Calcium [Mass/Vol] 9.3 mg/dL Normal 7.6-11.0 [facility] Comment on above: Order Comment: STOOL KIT GIVEN TO BRING BACK Performed By: #### L 500.4050, L100.0500 #### [facility] [address] [place], [address] Chloride [Moles/Vol] 103 mmol/L Normal 98-108 [facility] Comment on above: Order Comment: STOOL KIT GIVEN TO BRING BACK Performed By: #### L 500.4050, L100.0500 #### [facility] [address] [place], [address] CO2 [Moles/Vol] 23.6 mmol/L Normal 21.0-32.0 [facility] Comment on above: Order Comment: STOOL KIT GIVEN TO BRING BACK Performed By: #### L 500.4050, L100.0500 #### [facility] [address] [place], [address] Creatinine [Mass/Vol] 1.10 mg/dL Normal 0.70-1.20 [facility] Comment on above: Order Comment: STOOL KIT GIVEN TO BRING BACK Performed By: #### L 500.4050, L100.0500 #### [facility] [address] [place], [address] GAP 12 Normal 5-15 [facility] Comment on above: Order Comment: STOOL KIT GIVEN TO BRING BACK Performed By: #### L 500.4050, L100.0500 #### [facility] [address] [place], [address] GFR/1.73 sq M.predicted among non-blacks MDRD (S/P/Bld) [Vol rate/Area] 72 mL/min/{1.73_m2} Normal >60 [facility] Comment on above: Order Comment: STOOL KIT GIVEN TO BRING BACK Result Comment: mL/m in/1.73m2 CKD-EPI Creatinine Equation (2020) Performed By: #### L 500.4050, L100.0500 #### [facility] [address] [place], [address] Globulin (S) [Mass/Vol] 2.9 g/dL Normal 2.2-4.2 [facility] Comment on above: Order Comment: STOOL KIT GIVEN TO BRING BACK Performed By: #### L 500.4050, L100.0500 #### [facility] [address] [place], [address] Glucose [Mass/Vol] 167 mg/dL High 70-99 [facility] Comment on above: Order Comment: STOOL KIT GIVEN TO BRING BACK Performed By: #### L 500.4050, L100.0500 #### [facility] [address] [place], [address] Potassium [Moles/Vol] 3.3 mmol/L Normal 3.3-5.1 [facility] Comment on above: Order Comment: STOOL KIT GIVEN TO BRING BACK Performed By: #### L 500.4050, L100.0500 #### [facility] [address] [place], [address] Sodium [Moles/Vol] 138 mmol/L Normal 133-145 [facility] Comment on above: Order Comment: STOOL KIT GIVEN TO BRING BACK Performed By: #### L 500.4050, L100.0500 #### [facility] [address] [place], [address] T PROT 6.8 g/dL Normal 5.9-8.4 [facility] Comment on above: Order Comment: STOOL KIT GIVEN TO BRING BACK Performed By: #### L 500.4050, L100.0500 #### [facility] [address] [place], [address] Urea nitrogen [Mass/Vol] 13 mg/dL Normal 4-19 [facility] Comment on above: Order Comment: STOOL KIT GIVEN TO BRING BACK Performed By: #### L 500.4050, L100.0500 #### [facility] [address] [place], [address] Erythrocyte distribution wid th ratioOrdered By: Elmer Wilson on 09-29-2024 Erythrocyte distribution width (RBC) [Ratio] 12.5 % 11.6-14.6 [facility] Erythrocyte distribution wid th standard deviationOrdered By: Elmer Wilson on 09-29-2024 Erythrocyte distribution width (RBC) [Ratio] 41.0 fl 35.1-43.9 [facility] Glomerular filtration rate ( GFR) estimation/1.73 sq m using serum, plasma, or whole bOrdered By: Elmer Wilson on 09-29-2024 GFR/1.73 sq M.predicted among non-blacks MDRD (S/P/Bld) [Vol rate/Area] 72 mL/min/{1.73_m2} >60 [facility] Comment on above: mL/min/1.73m2 CKD-EP I Creatinine Equation (2020) Hematocrit Auto (Bld) [Volum e fraction]Ordered By: Elmer Wilson on 09-29-2024 Hematocrit (Bld) [Volume fraction] 39.4 % Low 40-54 [facility] Hemoglobin measurementOrdere d By: Elmer Wilson on 09-29-2024 Hemoglobin (Bld) [Mass/Vol] 13.3 g/dL 13.0-16.5 [facility] - Chemistry and C hemistry - challengeOrdered By: Elmer Wilson on 09-29-2024 AST [Catalytic activity/Vol] 24 U/L <38 [facility] MCV (mean corpuscular volume ) determinationOrdered By: Elmer Wilson on 09-29-2024 MCV (RBC) [Entitic vol] 88.9 fL 80-94 [facility] Mean corpuscular hemoglobin (MCH) determinationOrdered By: Elmer Wilson on 09-29-2024 MCH (RBC) [Entitic mass] 30.0 pg 27.0-32.0 [facility] Mean corpuscular hemoglobin concentration (MCHC) determinationOrdered By: Elmer Wilson on 09-29-2024 MCHC (RBC) [Mass/Vol] 33.8 g/dL 32-36 [facility] Mean platelet volume determi nationOrdered By: Elmer Wilson on 09-29-2024 Platelet mean volume (Bld) [Entitic vol] 11.3 fL 6.2-12.0 [facility] Platelet countOrdered By: Kashmir Wilson on 09-29-2024 Platelets (Bld) [#/Vol] 270 10*3/uL 150-450 [facility] Potassium measurement (mass/ volume)Ordered By: Elmer Wilson on 09-29-2024 Potassium (Unsp spec) [Mass/Vol] 3.3 mmol/L 3.3-5.1 [facility] RBC Auto (Bld) [#/Vol]Ordere d By: Elmer Wilson on 09-29-2024 RBC (Bld) [#/Vol] 4.43 10*6/uL Low 4.6-6.2 [facility] Serum creatinine measurement (mass/volume)Ordered By: Elmer Wilson on 09-29-2024 Creatinine [Mass/Vol] 1.10 mg/dL 0.70-1.20 [facility] Serum globulin measurementOr dered By: Elmer Wilson on 09-29-2024 Globulin (S) [Mass/Vol] 2.9 g/dL 2.2-4.2 [facility] Serum glucose measurement (m ass/volume)Ordered By: Elmer Wilson on 09-29-2024 Glucose [Mass/Vol] 167 mg/dL High 70-99 [facility] Serum or plasma alanine bhat otransferase (ALT) measurementOrdered By: Elmer Wilson on 09-29-2024 ALT [Catalytic activity/Vol] 35 U/L <47 [facility] Serum or plasma albumin july urement (mass/volume)Ordered By: Elmer Wilson on 09-29-2024 Albumin [Mass/Vol] 3.9 g/dL 3.4-4.8 [facility] Serum or plasma albumin/glob ulin mass ratioOrdered By: Elmer Wilson on 09-29-2024 Albumin/Globulin [Mass ratio] 1.3 {ratio} 0.9-2.4 [facility] Serum or plasma alkaline jenny sphatase measurementOrdered By: Elmer Wilson on 09-29-2024 ALP [Catalytic activity/Vol] 60 U/L 40-129 [facility] Serum or plasma calcium july urement (mass/volume)Ordered By: Elmer Wilson on 09-29-2024 Calcium [Mass/Vol] 9.3 mg/dL 7.6-11.0 [facility] Serum or plasma urea nitroge n measurement (mass/volume)Ordered By: Elmer Wilson on 09-29-2024 Urea nitrogen [Mass/Vol] 13 mg/dL 4-19 [facility] Sodium levelOrdered By: Elmer Wilson on 09-29-2024 Sodium [Moles/Vol] 138 mmol/L 133-145 [facility] Stool Clostridium difficile detectionOrdered By: Elmer Wilson on 09-29-2024 C. difficile Ql (Stl) [facility] Total proteinOrdered By: Scarlet Wilson on 09-29-2024 Protein [Mass/Vol] 6.8 g/dL 5.9-8.4 [facility] White blood cell (WBC) count Ordered By: Elmer Wilson on 09-29-2024 WBC (Bld) [#/Vol] 10.4 10*3/uL 4.4-11.0 [facility] Anion gap in Serum or Plasma Ordered By: Elmer Wilson on 09-03-2024 Anion gap [Moles/Vol] 10 mmol/L 5-15 [facility] BUN/creatinine ratioOrdered By: Elmer Wilson on 09-03-2024 Urea nitrogen/Creatinine [Mass ratio] 9.9 mg/mg Low 10-20 [facility] Bilirubin, totalOrdered By: Elmer Wilson on 09-03-2024 Bilirubin [Mass/Vol] 0.55 mg/dL 0.00-1.30 [facility] Carbon dioxide, total [Moles /volume] in Central venous bloodOrdered By: Elmer Wilson on 09-03-2024 CO2 [Moles/Vol] 26.0 mmol/L 21.0-32.0 [facility] Chloride assayOrdered By: Kashmir Wilson on 09-03-2024 Chloride [Moles/Vol] 101 mmol/L 98-108 [facility] Comprehensive Metabolic Prof ilon 05-02-2025 Albumin [Mass/Vol] 4.0 g/dL Normal 3.4-4.8 [facility] Comment on above: Performed By: #### L 501.9910 #### [facility] [address] [place], [address] Albumin/Globulin [Mass ratio] 1.5 {ratio} Normal 0.9-2.4 [facility] Comment on above: Performed By: #### L 501.9910 #### [facility] [address] [place], [address] ALK PHOS 61 U/L Normal 40-129 [facility] Comment on above: Performed By: #### L 501.9910 #### [facility] [address] [place], [address] ALT [Catalytic activity/Vol] 56 U/L High <=46 [facility] Comment on above: Performed By: #### L 501.9910 #### [facility] [address] [place], [address] AST [Catalytic activity/Vol] 36 U/L Normal <=37 [facility] Comment on above: Performed By: #### L 501.9910 #### [facility] [address] [place], [address] Bilirubin [Mass/Vol] 0.55 mg/dL Normal 0.00-1.30 [facility] Comment on above: Performed By: #### L 501.9910 #### [facility] [address] [place], [address] BUN/CRE 9.9 RATIO Low 10-20 [facility] Comment on above: Performed By: #### L [id number] #### [facility] [address] [place], [address] Calcium [Mass/Vol] 9.3 mg/dL Normal 7.6-11.0 [facility] Comment on above: Performed By: #### L [id number] #### [facility] [address] [place], [address] Chloride [Moles/Vol] 101 mmol/L Normal 98-108 [facility] Comment on above: Performed By: #### L [id number] #### [facility] [address] [place], [address] CO2 [Moles/Vol] 26.0 mmol/L Normal 21.0-32.0 [facility] Comment on above: Performed By: #### L [id number] #### [facility] [address] [place], [address] Creatinine [Mass/Vol] 1.30 mg/dL High 0.70-1.20 [facility] Comment on above: Performed By: #### L [id number] #### [facility] [address] [place], [address] GAP 10 Normal 5-15 [facility] Comment on above: Performed By: #### L 501.9910 #### [facility] [address] [place], [address] GFR/1.73 sq M.predicted among non-blacks MDRD (S/P/Bld) [Vol rate/Area] 59 mL/min/{1.73_m2} Low >60 [facility] Comment on above: Result Comment: mL/m in/1.73m2 CKD-EPI Creatinine Equation (2020) Performed By: #### L 501.9910 #### [facility] [address] [place], [address] Globulin (S) [Mass/Vol] 2.6 g/dL Normal 2.2-4.2 [facility] Comment on above: Performed By: #### L 501.9910 #### [facility] [address] [place], [address] Glucose [Mass/Vol] 122 mg/dL High 70-99 [facility] Comment on above: Performed By: #### L 501.9910 #### [facility] [address] [place], [address] Potassium [Moles/Vol] 3.7 mmol/L Normal 3.3-5.1 [facility] Comment on above: Performed By: #### L 501.9910 #### [facility] [address] [place], [address] Sodium [Moles/Vol] 138 mmol/L Normal 133-145 [facility] Comment on above: Performed By: #### L 501.9910 #### [facility] [address] [place], [address] T PROT 6.6 g/dL Normal 5.9-8.4 [facility] Comment on above: Performed By: #### L 501.9910 #### [facility] [address] [place], [address] Urea nitrogen [Mass/Vol] 13 mg/dL Normal 4-19 [facility] Comment on above: Performed By: #### L 501.9910 #### [facility] [address] [place], [address] Glomerular filtration rate ( GFR) estimation/1.73 sq m using serum, plasma, or whole bOrdered By: Elmer Wilson on 09-03-2024 GFR/1.73 sq M.predicted among non-blacks MDRD (S/P/Bld) [Vol rate/Area] 59 mL/min/{1.73_m2} Low >60 [facility] Comment on above: mL/min/1.73m2 CKD-EP I Creatinine Equation (2020) Laboratory - Chemistry and C hemistry - challengeOrdered By: Elmer Wilson on 09-03-2024 AST [Catalytic activity/Vol] 36 U/L <38 [facility] Potassium measurement (mass/ volume)Ordered By: Elmer Wilson on 09-03-2024 Potassium (Unsp spec) [Mass/Vol] 3.7 mmol/L 3.3-5.1 [facility] Serum creatinine measurement (mass/volume)Ordered By: Elmer Wilson on 09-03-2024 Creatinine [Mass/Vol] 1.30 mg/dL High 0.70-1.20 [facility] Serum globulin measurementOr dered By: Elmer Wilson on 09-03-2024 Globulin (S) [Mass/Vol] 2.6 g/dL 2.2-4.2 [facility] Serum glucose measurement (m ass/volume)Ordered By: Elmer Wilson on 09-03-2024 Glucose [Mass/Vol] 122 mg/dL High 70-99 [facility] Serum or plasma alanine bhat otransferase (ALT) measurementOrdered By: Elmer Wilson on 09-03-2024 ALT [Catalytic activity/Vol] 56 U/L High <47 [facility] Serum or plasma albumin july urement (mass/volume)Ordered By: Elmer Wilson on 09-03-2024 Albumin [Mass/Vol] 4.0 g/dL 3.4-4.8 [facility] Serum or plasma albumin/glob ulin mass ratioOrdered By: Elmer Wilson on 09-03-2024 Albumin/Globulin [Mass ratio] 1.5 {ratio} 0.9-2.4 [facility] Serum or plasma alkaline jenny sphatase measurementOrdered By: Elmer Wilson on 09-03-2024 ALP [Catalytic activity/Vol] 61 U/L 40-129 [facility] Serum or plasma calcium july urement (mass/volume)Ordered By: Elmer Wilson on 09-03-2024 Calcium [Mass/Vol] 9.3 mg/dL 7.6-11.0 [facility] Serum or plasma urea nitroge n measurement (mass/volume)Ordered By: Elmer Wilson on 09-03-2024 Urea nitrogen [Mass/Vol] 13 mg/dL 4-19 [facility] Sodium levelOrdered By: Elmer Wilson on 09-03-2024 Sodium [Moles/Vol] 138 mmol/L 133-145 [facility] Total proteinOrdered By: Scarlet Wilson on 09-03-2024 Protein [Mass/Vol] 6.6 g/dL 5.9-8.4 [facility] Lactic Acidon 09-02-2024 Lactate [Moles/Vol] 2.1 mmol/L Invalid Interpretation Code 0.0-2.0 [facility] Comment on above: Order Comment: Y Result Comment: Crit ical Result(s) Called at 0027: by: NBURNS TO [facility]??Results read back by same. Performed By: #### L 503.6005 #### [facility] [address] [place], [place], [address] Protein, Urine (Random)on Protein (U) [Mass/Vol] 14.5 mg/dL High 0.0-12.0 [facility] Comment on above: Performed By: #### L [id number] #### [facility] [address] [place], [place], [address] Abdomen/Pelvis W IV Cont ONL Yon 09-01-2024 Abdomen/Pelvis W IV Cont ONLY [facility] Services [address] [place] [place], [place] [address] Abdomen/Pelvis W IV Cont ONLY MR#: [id number] Acct: [id number] Name: ADILENE MILLER Rep #: [id number] : 1955 M 69 From: Kenyon kerr MD PCP: Dr. Delilah Quiroga MD Status: REG ER Study: Abdomen/Pelvis W IV Cont ONLY Date of Exam: Exam# [id number] Ordering Dr: Freddy Beltran DO PROCEDURE: ABDOMEN/PELVIS W IV CONT ONLY 09/01/2024 REASON FOR EXAM: ABDOMINAL PAIN TECHNIQUE: Abdomen and pelvis CT with intravenous contrast. Coronal and Sagittal reconstruction series were provided. PATIENT PREPARATION: Per protocol ORAL CONTRAST TYPE: None. AMOUNT: mL CONTRAST: Omnipaque 350 VOLUME: 100 mL Not Provided Gauge IV One or more dose reduction techniques were used (e.g., Automated exposure control, adjustment of the mA and/or kV according to patient size, use of iterative reconstruction technique. COMPARISON: None FINDINGS: Lung bases: Mild basilar atelectasis. Liver: Homogeneous attenuation. Subcentimeter low-attenuation lesions, too small to characterize and likely benign. However, there is small focus of portal venous gas in segments II-IV (series 2 images 17-31). Gallbladder: Cholelithiasis. No ductal dilation Spleen: Splenic granulomas. No splenomegaly. Pancreas: Normal size without evidence of mass surrounding inflammation or ductal dilation. Adrenals: Unremarkable. Kidneys: Homogeneous attenuation. Bilateral simple cysts. No calculi or hydronephrosis. Bladder: Urinary bladder is unremarkable. Reproductive Organs: No prostatomegaly. Bowel: Small hiatal hernia. Stomach is otherwise unremarkable. Multiple fluid-filled nondilated small bowel and colonic loops, with scattered areas of mild bowel wall thickening and submucosal hyperemia. Findings concerning for acute infectious and/or colitis. Appendix: Normal appendix. Lymph nodes: No suspicious lymph node enlargement. Vasculature: The abdominal aorta and IVC are normal. Diffuse atherosclerotic calcification. Peritoneum / Retroperitoneum: No ascites. Bones: No suspicious osseous lesions. CT/Abdomen/Pelvis W IV Cont ONLY IMPRESSION: Findings compatible with acute infectious enterocolitis. Nonspecific small focus of portal venous gas within hepatic segments II-IV. Red Alert: The critical information above was relayed directly by me by telephone to Freddy Beltran on 09/01/2024 at 11:04 pm with readback verification. [facility] CC: Dr. Delilah Quiroga MD; Dr. Freddy Beltran, Sensor Technician: Signed Normal [facility] Absolute lymphocyte countOrd ered By: Freddy Beltran on 09-01-2024 Lymphocytes Auto (Unsp spec) [#/Vol] 1.23 10*3/uL 0.83-4.51 [facility] Absolute neutrophil countOrd ered By: Freddy Beltran on 09-01-2024 Neutrophils (Bld) [#/Vol] 11.4 10*3/uL High 2.0-7.7 [facility] Anion gap in Serum or Plasma Ordered By: Freddy Beltran on 09-01-2024 Anion gap [Moles/Vol] 17 mmol/L High 5-15 [facility] Automated lymphocyte count a s percentage of total leukocytesOrdered By: Freddy Beltran on 09-01-2024 Lymphocytes/100 WBC Auto (Unsp spec) 8.4 % Low 19-41 [facility] BUN/creatinine ratioOrdered By: Freddy Beltran on 09-01-2024 Urea nitrogen/Creatinine [Mass ratio] 13.9 mg/mg 10-20 [facility] Basophil percentageOrdered B y: Freddy Beltran on 09-01-2024 Basophils/100 WBC (Bld) 0.2 % 0-1 [facility] Bilirubin Test strip Ql (U)O rdered By: Freddy Beltran on 09-01-2024 Bilirubin Ql (U) 1 mg/dL High Negative [facility] Comment on above: COLOR OF URINE MAY A FFECT DIPSTICK RESULTS. Bilirubin, totalOrdered By: Freddy Beltran on 09-01-2024 Bilirubin [Mass/Vol] 0.85 mg/dL 0.00-1.30 [facility] CBC W/Diff, Automatedon 08-05 Absolute Lymph 1.23 X10 3/uL Normal 0.83-4.51 [facility] Comment on above: Performed By: #### L 500.4050, L100.0100, L501.2450 #### [facility] [address] [place], [address] Absolute Neut 11.4 X10 3/uL High 2.0-7.7 [facility] Comment on above: Performed By: #### L [id number], L100.0100, L501.2450 #### [facility] [address] [place], [address] Basophils/100 WBC (Bld) 0.2 % Normal 0-1 [facility] Comment on above: Performed By: #### L [id number], L100.0100, L501.2450 #### [facility] [address] [place], [address] Eosinophils/100 WBC (Bld) 5.3 % High 0-5 [facility] Comment on above: Performed By: #### L [id number], L100.0100, L501.2450 #### [facility] [address] [place], [address] Erythrocyte distribution width (RBC) [Ratio] 12.8 % Normal 11.6-14.6 [facility] Comment on above: Performed By: #### L [id number], L100.0100, L501.2450 #### [facility] [address] [place], [address] Hematocrit (Bld) [Volume fraction] 47.8 % Normal 40-54 [facility] Comment on above: Performed By: #### L 500.4050, L100.0100, L501.2450 #### [facility] [address] [place], [address] Hemoglobin (Bld) [Mass/Vol] 16.7 g/dL High 13.0-16.5 [facility] Comment on above: Performed By: #### L 500.4050, L100.0100, L501.2450 #### [facility] [address] [place], [address] IG% 0.500 Normal 0.0-0.9 [facility] Comment on above: Result Comment: IG% - Immature Granulocytes (promyelocytes, myelocytes and metamyelocytes) > 1% indicates that a LEFT SHIFT is Present. Performed By: #### L 500.4050, L100.0100, L501.2450 #### [facility] [address] [place], [address] Lymphocytes/100 WBC (Bld) 8.4 % Low 19-41 [facility] Comment on above: Performed By: #### L 500.4050, L100.0100, L501.2450 #### [facility] [address] [place], [address] MCH (RBC) [Entitic mass] 30.4 pg Normal 27.0-32.0 [facility] Comment on above: Performed By: #### L 500.4050, L100.0100, L501.2450 #### [facility] [address] [place], [address] MCHC (RBC) [Mass/Vol] 34.9 g/dL Normal 32-36 [facility] Comment on above: Performed By: #### L 500.4050, L100.0100, L501.2450 #### [facility] [address] [place], [address] MCV (RBC) [Entitic vol] 87.1 fL Normal 80-94 [facility] Comment on above: Performed By: #### L 500.4050, L100.0100, L501.2450 #### [facility] [address] [place], [address] Monocytes/100 WBC (Bld) 8.0 % Normal 0-10 [facility] Comment on above: Performed By: #### L 500.4050, L100.0100, L501.2450 #### [facility] [address] [place], [address] Neutrophils/100 WBC (Bld) 77.6 % High 47-70 [facility] Comment on above: Performed By: #### L 500.4050, L100.0100, L501.2450 #### [facility] [address] [place], [address] Nucleated RBC (Bld) [#/Vol] 0 10*3/uL Normal 0-5 [facility] Comment on above: Performed By: #### L 500.4050, L100.0100, L501.2450 #### [facility] [address] [place], [address] Platelet mean volume (Bld) [Entitic vol] 11.6 fL Normal 6.2-12.0 [facility] Comment on above: Performed By: #### L 500.4050, L100.0100, L501.2450 #### [facility] [address] [place], [address] Platelets (Bld) [#/Vol] 303 10*3/uL Normal 150-450 [facility] Comment on above: Performed By: #### L 500.4050, L100.0100, L501.2450 #### [facility] [address] [place], [address] RBC (Bld) [#/Vol] 5.49 10*6/uL Normal 4.6-6.2 [facility] Comment on above: Performed By: #### L 500.4050, L100.0100, L501.2450 #### [facility] [address] [place], [address] RDW SD 40.5 fl Normal 35.1-43.9 [facility] Comment on above: Performed By: #### L 500.4050, L100.0100, L501.2450 #### [facility] [address] [place], [address] WBC (Bld) [#/Vol] 14.7 10*3/uL High 4.4-11.0 [facility] Comment on above: Performed By: #### L 500.4050, L100.0100, L501.2450 #### [facility] [address] [place], [address] Carbon dioxide, total [Moles /volume] in Central venous bloodOrdered By: Freddy Beltran on 09-01-2024 CO2 [Moles/Vol] 18.4 mmol/L Low 21.0-32.0 [facility] Chloride assayOrdered By: Marc Beltran on 09-01-2024 Chloride [Moles/Vol] 102 mmol/L 98-108 [facility] Comprehensive Metabolic Prof ilon 09-01-2024 Albumin [Mass/Vol] 4.2 g/dL Normal 3.4-4.8 [facility] Comment on above: Performed By: #### L 501.9910 #### [facility] [address] [place], [address] Albumin/Globulin [Mass ratio] 1.3 {ratio} Normal 0.9-2.4 [facility] Comment on above: Performed By: #### L 501.9910 #### [facility] [address] [place], [address] ALK PHOS 76 U/L Normal 40-129 [facility] Comment on above: Performed By: #### L 501.9910 #### [facility] [address] [place], [address] ALT [Catalytic activity/Vol] 68 U/L High <=46 [facility] Comment on above: Performed By: #### L 501.9910 #### [facility] [address] [place], [address] AST [Catalytic activity/Vol] 38 U/L Normal <=37 [facility] Comment on above: Performed By: #### L [id number] #### [facility] [address] [place], [address] Bilirubin [Mass/Vol] 0.85 mg/dL Normal 0.00-1.30 [facility] Comment on above: Performed By: #### L 501.9910 #### [facility] [address] [place], [address] BUN/CRE 13.9 RATIO Normal 10-20 [facility] Comment on above: Performed By: #### L 501.9910 #### [facility] [address] [place], [address] Calcium [Mass/Vol] 9.9 mg/dL Normal 7.6-11.0 [facility] Comment on above: Performed By: #### L [id number] #### [facility] [address] [place], [address] Chloride [Moles/Vol] 102 mmol/L Normal 98-108 [facility] Comment on above: Performed By: #### L [id number] #### [facility] [address] [place], [address] CO2 [Moles/Vol] 18.4 mmol/L Low 21.0-32.0 [facility] Comment on above: Performed By: #### L [id number] #### [facility] [address] [place], [address] Creatinine [Mass/Vol] 1.56 mg/dL High 0.70-1.20 [facility] Comment on above: Performed By: #### L 501.9910 #### [facility] [address] [place], [address] ECRCL 46.93 ml/min Low 50-250 [facility] Comment on above: Performed By: #### L 501.9910 #### [facility] [address] [place], [address] GAP 17 High 5-15 [facility] Comment on above: Performed By: #### L 501.9910 #### [facility] [address] [place], [address] GFR/1.73 sq M.predicted among non-blacks MDRD (S/P/Bld) [Vol rate/Area] 47 mL/min/{1.73_m2} Low >60 [facility] Comment on above: Result Comment: mL/m in/1.73m2 CKD-EPI Creatinine Equation (2020) Performed By: #### L 501.9910 #### [facility] [address] [place], [address] Globulin (S) [Mass/Vol] 3.1 g/dL Normal 2.2-4.2 [facility] Comment on above: Performed By: #### L [id number] #### [facility] [address] [place], [address] Glucose [Mass/Vol] 231 mg/dL High 70-99 [facility] Comment on above: Performed By: #### L [id number] #### [facility] [address] [place], [address] Potassium [Moles/Vol] 3.6 mmol/L Normal 3.3-5.1 [facility] Comment on above: Performed By: #### L 501.9910 #### [facility] [address] [place], [address] Sodium [Moles/Vol] 137 mmol/L Normal 133-145 [facility] Comment on above: Performed By: #### L [id number] #### [facility] [address] [place], [address] T PROT 7.3 g/dL Normal 5.9-8.4 [facility] Comment on above: Performed By: #### L [id number] #### [facility] [address] [place], [address] Urea nitrogen [Mass/Vol] 22 mg/dL High 4-19 [facility] Comment on above: Performed By: #### L 501.9910 #### [facility] [address] [place], [address] Emergency Department Summary on 09-01-2024 Emergency Department Summary [facility] Medical Records Department [address] [place] [address] Emergency Department Summary 09/01/24 MR#: [id number] Acct: [id number] Name: ADILENE MILLER Rep #: [id number] : 1955 69 From: Freddytrang Beltran DO PCP: Dr. Delilah Quiroga MD Status:REG ER Location: ED HPI HPI - GI History of Present Illness Chief Complaint: Diarrhea Informant: patient Abdominal Pain/Flank Pain Onset: Today Context: Gradual Onset Timing: Continuous Quality: Aching and Burning Location: Diffuse Worsened by: Nothing Relieved by: Nothing Nausea/Vomiting/Bernadine sis GI Symptom: Positive for Nausea and Vomiting Onset: Today Quality: Positive for Nonbilious; Negative for Blood streaks, Coffee ground or Hematemesis Diarrhea/Melena/Hem atochezia GI Symptom: Positive for Diarrhea; Negative for Melena or Hematochezia Onset: Today Stool Quality: Positive for Watery Associated Symptoms Associated Symptoms: Negative for Dysuria, Frequency or Hematuria Narrative Narrative: The patient presents with abdominal pain, nausea, vomiting, and diarrhea that began this morning. Patient states that it is gradually gotten worse throughout the day. Patient states it woke him up early this morning. Patient describes his pain as aching and burning. Patient states his pain started in the epigastric area but is now diffuse across his abdomen. Patient states nothing makes it better and nothing makes it worse. Patient admits to some nausea and vomiting but denies any hematemesis or coffee-ground emesis. Patient admits to some diarrhea. Patient states it is watery. Patient denies any melena or hematochezia. Patient denies any urinary complaints. Patient denies any fevers or chills. PFSH PFSH Medical History no medical history no medical history Home Medications ???Medication ???Instructions ???Recorded ???Last Taken ???Type ciprofloxacin HCl 500 mg tablet 500 mg PO BID #20 TABLETS 09/02/24 Unknown Rx metronidazole 500 mg tablet 500 mg PO Q6H #40 tabs 09/02/24 Un known Rx ondansetron 4 mg disintegrating 4 mg PO Q8H PRN PRN Nausea #10 tab s 09/02/24 Unknown Rx tablet Allergy/AdvReac Type Severity Reaction Status Date / Time No Known Allergies Allergy Verified 09/01/24 20:51 Surgical History no surgical history no surgical history Social History Smoking Status: Never smoker ROS ROS ED Constitutional Constitutional ED: Denies chills or fever(s) Eyes Eyes: Denies blurry vision or change in vision ENT ENT ED: Reports rhinorrhea; Denies sore throat Cardiovascular Cardiovascular: Denies chest pain or palpitations Respiratory/Chest Respiratory/Chest: Denies cough or dyspnea Gastrointestinal Gastrointestinal: Reports abdominal pain, diarrhea, nausea and vomiting; Denies melena Genitourinary Genitourinary ED: Denies dysuria or hematuria Musculoskeletal Musculoskeletal: Denies back pain or neck pain Integumentary Denies abscess or rash Neurologic Neurologic: Denies headache(s) or weakness Allergic/Immunologi c Allergic/Immunologi c ED: Denies mouth swelling or urticaria EXAM Physical Exam Const Vital Signs: 09/01/24 20:51 09/01/24 21:03 09/01/24 22:00 Temperature 97.6 F L Temperature Source Temporal Pulse Rate 93 90 95 Respiratory Rate 18 20 H 19 H Blood Pressure 88/64 L 121/64 H 118/78 Blood Pressure Mean 72 83 91 Pulse Ox 96 98 97 Oxygen Delivery Method Room Air Room Air Room Air 09/01/24 23:00 09/02/24 00:00 Temperature Temperature Source Pulse Rate 86 81 Respiratory Rate 17 16 Blood Pressure 115/75 110/71 Blood Pressure Mean 88 84 Pulse Ox 98 98 Oxygen Delivery Method Room Air Room Air Positive well nourished and well developed Constitutional Narrative: BMI is 25.1 General Appearance ED: well developed and NAD HEENT Reports moist mucous membranes normocephalic and atraumatic Neck supple and no JVD Resp normal respiratory effort and clear to auscultation bilaterally Cardio regular rate and regular rhythm GI Inspection: abdominal distention Palpation: soft and tender epigastric, LLQ, RLQ, LUQ, RUQ, periumbilical and suprapubic Neuro CN's II-XII intact bilaterally, moves all extremities and no sensory deficits noted Sensorium / Orientation: alert Motor Exam: strength 5/5 throughout Psych mental status grossly normal and thought process normal MDM MDM MDM Narrative Medical decision making narrative: Differential diagnosis includes bowel obstruction, perforation, gastroenteritis, cholecystitis, cholelithiasis, pancreatitis, colitis, urinary tract infection, pyelonephritis, and dehydration. CBC will be obtained to assess for leukocytosis and anemia. Comprehensive metabolic prof (more content not included)... Normal [facility] Eosinophil percentageOrdered By: Freddy Beltran on 09-01-2024 Eosinophils/100 WBC (Bld) 5.3 % High 0-5 [facility] Erythrocyte distribution wid th ratioOrdered By: Freddy Beltran on 09-01-2024 Erythrocyte distribution width (RBC) [Ratio] 12.8 % 11.6-14.6 [facility] Erythrocyte distribution wid th standard deviationOrdered By: Freddy Beltran on 09-01-2024 Erythrocyte distribution width (RBC) [Ratio] 40.5 fl 35.1-43.9 [facility] Glomerular filtration rate ( GFR) estimation/1.73 sq m using serum, plasma, or whole bOrdered By: Freddy Beltran on 09-01-2024 GFR/1.73 sq M.predicted among non-blacks MDRD (S/P/Bld) [Vol rate/Area] 47 mL/min/{1.73_m2} Low >60 [facility] Comment on above: mL/min/1.73m2 CKD-EP I Creatinine Equation (2020) Hematocrit Auto (Bld) [Volum e fraction]Ordered By: Freddy Beltran on 09-01-2024 Hematocrit (Bld) [Volume fraction] 47.8 % 40-54 [facility] Hemoglobin measurementOrdere d By: Freddy Beltran on 09-01-2024 Hemoglobin (Bld) [Mass/Vol] 16.7 g/dL High 13.0-16.5 [facility] Immature granulocytes/100 WB C Auto (Bld)Ordered By: Freddy Beltran on 09-01-2024 Immature granulocytes/100 WBC (Bld) 0.500 % 0.0-0.9 [facility] Comment on above: IG% - Immature Granu locytes (promyelocytes, myelocytes and metamyelocytes) > 1% indicates that a LEFT SHIFT is Present. Ketones Test strip Ql (U)Ord ered By: Freddy Beltran on 09-01-2024 Ketones Ql (U) Negative Negative [facility] - Chemistry and C hemistry - challengeOrdered By: Freddy Beltran on 09-01-2024 AST [Catalytic activity/Vol] 38 U/L <38 [facility] Lactic acid measurementOrder ed By: Freddy Beltran 09-01-2024 Lactate [Moles/Vol] 2.1 mmol/L High 0.0-2.0 [facility] Comment on above: Critical Result(s) C alled at 0027: by: NBURNS TO [facility] Results read back by same. Lipaseon 09-01-2024 Lipase [Catalytic activity/Vol] 21 U/L Normal 13-75 [facility] Comment on above: Result Comment: Angelita bray note: LIPASE revised reference range effective 22. New Lipase methodology. Expected to produce lower values than the previous assay method. NEW Reference Range: 13 - 75 U/L Performed By: #### L 501.9910 #### [facility] [place], [address] Lipase measurementOrdered By : Freddy Beltran on 09-01-2024 Lipase [Catalytic activity/Vol] 21 U/L 13-75 [facility] Comment on above: Please note:LIPASE r evised reference range effective 22. New Lipase methodology. Expected to produce lower values than the previous assay method. NEW Reference Range: 13 - 75 U/L MCV (mean corpuscular volume ) determinationOrdered By: Freddy Beltran on 09-01-2024 MCV (RBC) [Entitic vol] 87.1 fL 80-94 [facility] Mean corpuscular hemoglobin (MCH) determinationOrdered By: Freddy Beltran on 09-01-2024 MCH (RBC) [Entitic mass] 30.4 pg 27.0-32.0 [facility] Mean corpuscular hemoglobin concentration (MCHC) determinationOrdered By: Freddy Beltran on 09-01-2024 MCHC (RBC) [Mass/Vol] 34.9 g/dL 32-36 [facility] Mean platelet volume determi nationOrdered By: Freddy Beltran on 09-01-2024 Platelet mean volume (Bld) [Entitic vol] 11.6 fL 6.2-12.0 [facility] Microscopic analysis of urin e for red blood cells (RBC)Ordered By: Freddy Beltran on 09-01-2024 Microscopic analysis of urine for red blood cells (RBC) 0 SEEN /hpf 0-5 [facility] Monocyte percentageOrdered B y: Freddy Beltran on 09-01-2024 Monocytes/100 WBC (Bld) 8.0 % 0-10 [facility] Mucus LM Ql (Urine sed)Order ed By: Freddy Beltran on 09-01-2024 Mucus Ql (Urine sed) 0 SEEN /hpf [facility] Neutrophil percentageOrdered By: Freddy Beltran on 09-01-2024 Neutrophils/100 WBC (Bld) 77.6 % High 47-70 [facility] Nitrite Test strip Ql (U)Ord ered By: Freddy Beltran on 09-01-2024 Nitrite Ql (U) Negative Negative [facility] Nucleated red blood cell per centageOrdered By: Fredyd Beltran on 09-01-2024 Nucleated RBC/100 WBC (Bld) [Ratio] 0 % 0-5 [facility] Platelet countOrdered By: Marc Beltran on 09-01-2024 Platelets (Bld) [#/Vol] 303 10*3/uL 150-450 [facility] Potassium measurement (mass/ volume)Ordered By: Freddy Beltran on 09-01-2024 Potassium (Unsp spec) [Mass/Vol] 3.6 mmol/L 3.3-5.1 [facility] Protein Test strip Ql (U)Ord ered By: Freddy Beltran on 09-01-2024 Protein Ql (U) TNP [facility] Comment on above: Test not performed RBC Auto (Bld) [#/Vol]Ordere d By: Freddy Beltran on 09-01-2024 RBC (Bld) [#/Vol] 5.49 10*6/uL 4.6-6.2 [facility] Serum creatinine measurement (mass/volume)Ordered By: Freddy Beltran on 09-01-2024 Creatinine [Mass/Vol] 1.56 mg/dL High 0.70-1.20 [facility] Serum globulin measurementOr dered By: Freddy Beltran on 09-01-2024 Globulin (S) [Mass/Vol] 3.1 g/dL 2.2-4.2 [facility] Serum glucose measurement (m ass/volume)Ordered By: Freddy Beltran on 09-01-2024 Glucose [Mass/Vol] 231 mg/dL High 70-99 [facility] Serum or plasma alanine bhat otransferase (ALT) measurementOrdered By: Freddy Beltran on 09-01-2024 ALT [Catalytic activity/Vol] 68 U/L High <47 [facility] Serum or plasma albumin july urement (mass/volume)Ordered By: Freddy Beltran on 09-01-2024 Albumin [Mass/Vol] 4.2 g/dL 3.4-4.8 [facility] Serum or plasma albumin/glob ulin mass ratioOrdered By: Freddy Beltran on 09-01-2024 Albumin/Globulin [Mass ratio] 1.3 {ratio} 0.9-2.4 [facility] Serum or plasma alkaline jenny sphatase measurementOrdered By: Freddy Beltran on 09-01-2024 ALP [Catalytic activity/Vol] 76 U/L 40-129 [facility] Serum or plasma calcium july urement (mass/volume)Ordered By: Freddy Beltran on 09-01-2024 Calcium [Mass/Vol] 9.9 mg/dL 7.6-11.0 [facility] Serum or plasma urea nitroge n measurement (mass/volume)Ordered By: Freddy Beltran on 09-01-2024 Urea nitrogen [Mass/Vol] 22 mg/dL High 4-19 [facility] Sodium levelOrdered By: Freddy Beltran on 09-01-2024 Sodium [Moles/Vol] 137 mmol/L 133-145 [facility] Squamous epithelial cells de tection in urine sediment by light microscopyOrdered By: Freddy Beltran on 09-01-2024 Epithelial cells.squamous LM Ql (Urine sed) 0 SEEN /hpf 0-5 [facility] Total proteinOrdered By: Tammi Beltran on 09-01-2024 Protein [Mass/Vol] 7.3 g/dL 5.9-8.4 [facility] Urinalysis, Completeon 09-01 BACTERIA 0 SEEN Normal None Seen [facility] Comment on above: Order Comment: Order Date: 11/07/23 Order Info: [id number] - PSA Performed By: #### L [id number] #### [facility] [address] [place], [address] EPI,SQUAMOUS 0 SEEN Normal 0-5 [facility] Comment on above: Order Comment: Order Date: 11/07/23 Order Info: [id number] - PSA Performed By: #### L [id number] #### [facility] [address] [place], [address] Mucus Ql (Urine sed) 0 SEEN Normal [facility] Comment on above: Order Comment: Order Date: 11/07/23 Order Info: [id number] - PSA Performed By: #### L [id number] #### [facility] [address] [place], [address] RBC 0 SEEN Normal 0-5 [facility] Comment on above: Order Comment: Order Date: 11/07/23 Order Info: [id number] - PSA Performed By: #### L [id number] #### [facility] [address] [place], [address] WBC 0 SEEN Normal 0-5 [facility] Comment on above: Order Comment: Order Date: 11/07/23 Order Info: [id number] - PSA Performed By: #### L [id number] #### [facility] [address] [place], [address] Urine clarityOrdered By: Tammi Beltran on 09-01-2024 Clarity (U) Clear Clear [facility] Urine color determinationOrd ered By: Freddy Beltran on 09-01-2024 Color (U) Yellow Yellow [facility] Urine glucose detectionOrder ed By: Freddy Beltran on 09-01-2024 Glucose Ql (U) 100 mg/dl High Normal [facility] Urine leukocyte esterase det ection by dipstickOrdered By: Freddy Beltran on 09-01-2024 Leukocyte esterase Test strip Ql (U) 25 /ul High Negative [facility] Urine pHOrdered By: Freddy hart on 09-01-2024 pH (U) 5.0 [pH] 5.0 - 8.0 [facility] Urine protein measurement (m ass/volume)Ordered By: Freddy Beltran on 09-01-2024 Protein (U) [Mass/Vol] 14.5 mg/dL High 0.0-12.0 [facility] Urine sediment bacteria coun t by microscopy (number/high power field)Ordered By: Freddy Beltran on 09-01-2024 Bacteria LM.HPF (Urine sed) [#/Area] 0 /[HPF] None Seen [facility] Urine specific gravity measu rementOrdered By: Freddy Beltran on 09-01-2024 Specific gravity (U) [Rel density] 1.010 1.002-1.030 [facility] Urine urobilinogen measureme ntOrdered By: Freddy Beltran on 09-01-2024 Urobilinogen Ql (U) Normal mg/dl Normal [facility] White blood cell (WBC) count Ordered By: Freddy Beltran on 09-01-2024 WBC (Bld) [#/Vol] 14.7 10*3/uL High 4.4-11.0 [facility] White blood cell countOrdere d By: Freddy Beltran on 09-01-2024 White blood cell count 0 SEEN /hpf 0-5 [facility] PSA,Total - Annual Screenon 11-19-2023 PSA,TOT SCREEN 0.37 ng/mL Normal 0.00-4.00 [facility] Comment on above: Order Comment: Order Date: 11/07/23 Order Info: [id number] - PSA Result Comment: This test was performed using the TPSA assay method for the ICEX chemistry system. Values obtained with different assay methods cannot be used interchangably. When changing PSA assays in the course of monitoring a patient, additional sequential testing should be carried out to confirm baseline values. Performed By: #### L [id number] #### [facility] [address] [place], [address] No Panel InformationOrdered By: Delilah Quiroga on 11-11-2022 Prostate Specific Antigen Screen 0.60 ng/mL 0.00-4.00 [facility] Comment on above: This test was perfor med using the TPSA assay method for [employer] chemistry system. Values obtained with differentassay methods cannot be used interchangably.When changing PSA assays in the course of monitoring apatient, additional sequential testing should be carriedout to confirm baseline values. Basophil percentageon 2021 Bilirubin [Mass/Vol] 0.90 mg/dL 0.20-1.00 [facility] Work Phone: Comment on above: For patients on eltr ombopag therapy, use of Dimension [place] TBIL is not recommended. Chloride [Moles/Vol] 102 mmol/L 98-107 [facility] Work Phone: Cholesterol [Mass/Vol] 181 mg/dL <200 [facility] Work Phone: Comment on above: <200 mg/dL Desirable 200-240 mg/dL Borderline >240 mg/dL High Risk Glucose [Mass/Vol] 113 mg/dL 74-106 [facility] Work Phone: Comment on above: Fasting Glucose resu lt from 100 to 125 mg/dL suggests IMPAIRED HOMEOSTASIS per A.D.A. criteria. Potassium [Moles/Vol] 3.6 mmol/L 3.5-5.1 [facility] Work Phone: Protein [Mass/Vol] 7.1 g/dL 6.4-8.2 [facility] Work Phone: Sodium [Moles/Vol] 139 mmol/L 136-145 [facility] Work Phone: [phone] Triglyceride [Mass/Vol] 81 mg/dL <199 [facility] Work Phone: Comment on above: The drugs N-Acetylcy steine and Metamizole may falsely depress this assay.Serum Triglycerides Reference Interval Normal <150 mg/dL Borderline high 150 - 199 mg/dL High 200 - 499 mg/dL Very High > or = 500 mg/dL WBC (Bld) [#/Vol] 6.3 10*3/uL 4.4-11.0 [facility] Work Phone: [phone] Blood erythrocytes count (nu mber/volume)on 02-18-2022 RBC (Bld) [#/Vol] 5.46 10*6/uL 4.6-6.2 [facility] Work Phone: [phone] Blood hemoglobin measurement (mass/volume)on 02-18-2022 Hemoglobin (Bld) [Mass/Vol] 16.6 g/dL 13.0-16.5 [facility] Work Phone: [phone] Blood platelet mean volumeon 02-18-2022 Platelet mean volume (Bld) [Entitic vol] 11.8 fL 6.2-12.0 [facility] Work Phone: [phone] Determination of erythrocyte mean corpuscular volume (MCV)on 02-18-2022 MCV (RBC) [Entitic vol] 89.9 fL 80-94 [facility] Work Phone: [phone] Hematocrit Auto (Bld) [Volum e fraction]on 02-18-2022 Hematocrit (Bld) [Volume fraction] 49.1 % 40-54 [facility] Work Phone: [phone] Iron measurement (mass/mass) on 02-18-2022 Iron (Unsp spec) [Mass/Mass] 179 ug/dL 65-175 [facility] Work Phone: Laboratory - Chemistry and C hemistry - challengeon 02-18-2022 ALP [Catalytic activity/Vol] 40 U/L 45-117 [facility] Work Phone: ALT [Catalytic activity/Vol] 27 U/L 16-61 [facility] Work Phone: [phone] CO2 [Moles/Vol] 29.0 mmol/L 21.0-32.0 [facility] Work Phone: [phone] Cobalamin (Vitamin B12) [Mass/Vol] 294 pg/mL 211-911 [facility] Work Phone: Free T4 [Mass/Vol] 0.85 ng/dL 0.76-1.46 [facility] Work Phone: Globulin (S) [Mass/Vol] 3.5 g/dL 2.2-4.2 [facility] Work Phone: [phone] Magnesium [Mass/Vol] 1.8 mg/dL 1.6-2.6 [facility] Work [facility]: T4 [Mass/Vol] 7.9 ug/dL 4.5-12.1 [facility] Work Phone: [phone] Urea nitrogen/Creatinine [Mass ratio] 6.9 mg/mg 10- [facility] Work Phone: [phone] Laboratory - Hematology and Cell countson 02-18-2022 Erythrocyte distribution width (RBC) [Entitic vol] 41.7 fL 35.1-43.9 [facility] Work Phone: [phone] Erythrocyte distribution width (RBC) [Ratio] 12.7 % 11.6-14.6 [facility] Work Phone: [phone] MCH (RBC) [Entitic mass] 30.4 pg 27.0-32.0 [facility] Work Phone: [phone] MCHC Auto (RBC) [Mass/Vol]on 02-18-2022 MCHC (RBC) [Mass/Vol] 33.8 g/dL 32-36 [facility] Work Phone: No Panel Informationon 02-18 C-Reactive Protein High Sensitivity 0.50 mg/L <3.00 [facility] Work Phone: Comment on above: Low Relative Risk of CVD <1.0 mg/L Average Relative Risk of CVD 1.0 - 3.0 mg/L High Relative Risk of CVD >3.0 mg/L Estimated GFR (MDRD) Amer 71 mL/min >60 [facility] Work Phone: [phone] Comment on above: GFR Calc Estimated GFR (MDRD) Non-Af Amer 58 mL/min >60 [facility] Work Phone: [phone] Comment on above: Non- GFR Calc Follicle Stimulating Hormone 0.6 mIU/mL [facility] Work Phone: [phone] Comment on above: NORMAL REFERENCE RAN GES FEMALE FOLLICULAR 2.3 - 12.6 mIU/mL MID-CYCLE PEAK 5.2 - 17.5 mIU/mL LUTEAL 1.7 - 12.9 mIU/mL POST-MENOPAUSAL ON MHT 5.9 - 72.8 mIU/mL NOT ON MHT 12.7 - 132.2 mlU/mL MALE 0.7 - 10.8 mIU/mL Homocysteine 10.2 umol/L 3.2-10.7 [facility] Work Phone: Luteinizing Hormone < 0.2 mIU/mL [facility] Work Phone: Comment on above: NORMAL REFERENCE RAN GES FEMALE FOLLICULAR 1.9 - 26.2 mIU/mL MID-CYCLE PEAK 22.8 - 76.1 mIU/mL LUTEAL 0.6 - 16.6 mIU/mL POST-MENOPAUSAL ON MHT 1.1 - 52.4 mIU/mL NOT ON MHT 8.6 - 61.8 mIU/mL MALE 1.2 - 10.6 mIU/mL Thyroid Stimulating Hormone (TSH) 2.03 uIU/mL 0.358-3.74 [facility] Work Phone: Total Triiodothyronine 1.00 ng/mL 0.6-1.81 [facility] Work Phone: Vitamin D 25-Hydroxy 35.0 ng/mL [facility] Work Phone: Comment on above: Vitamin D 25(OH) Sta tus Range Deficiency <20 ng/mL (50nmol/L) Insufficiency 20 - 30 ng/mL (50 - 75 nmol/L) Sufficiency 30 - 100 ng/mL (75 - 250 nmol/L) Toxicity >100 ng/mL (>250 nmol/L) Platelets bldon 02-18-2022 Platelets (Bld) [#/Vol] 229 10*3/uL 150-450 [facility] Work Phone: Serum or plasma albumin july urement (mass/volume)on 02-18-2022 Albumin [Mass/Vol] 3.6 g/dL 3.2-5.0 [facility] Work Phone: Serum or plasma albumin/glob ulin mass ratioon 02-18-2022 Albumin/Globulin [Mass ratio] 1.0 {ratio} 0.9-2.4 [facility] Work Phone: [phone] Serum or plasma calcium july urement (mass/volume)on 02-18-2022 Calcium [Mass/Vol] 9.0 mg/dL 8.5-10.1 [facility] Work Phone: Serum or plasma cholesterol in HDL measurement (mass/volume)on 02-18-2022 Cholesterol in HDL [Mass/Vol] 59 mg/dL >40 [facility] Work Phone: Comment on above: The drugs N-Acetylcy steine and Metamizole may falsely depress this assay. Reference Range HDL <40 mg/dL Low HDL Cholesterol HDL >or= 60 mg/dL High HDL Cholesterol Serum or plasma cholesterol in VLDL measurement (mass/volume)on 02-18-2022 Cholesterol in VLDL [Mass/Vol] 16 mg/dL 5-40 [facility] Work Phone: Serum or plasma cortisol eddie surement (mass/volume)on 02-18-2022 Cortisol [Mass/Vol] 16.00 ug/dL 3.44-22.45 [facility] Work Phone: Comment on above: Adult (AM) 5.27 - 22 .45 ug/dL Adult (PM) 3.44 - 16.76 ug/dLPlease note revised CORTISOL reference range effective 2019. Serum or plasma creatinine m easurement (mass/volume)on 02-18-2022 Creatinine [Mass/Vol] 1.30 mg/dL 0.70-1.30 [facility] Work Phone: Comment on above: The validity of the calculated GFR & GFRAA in patients over 70 years has not been determined. Clinical correlation is essential. Serum or plasma estradiol (E 2) measurement (mass/volume)on 02-18-2022 E2 [Mass/Vol] 47.3 pg/mL [facility] Work Phone: Comment on above: NORMAL REFERENCE RAN GES FEMALE FOLLICULAR 21.4 - 164.8 pg/mL MID-CYCLE PEAK 49.9 - 367.2 pg/mL LUTEAL 40.2 - 259.0 pg/mL POST-MENOPAUSAL ON MHT <11.0 - 462.1 pg/mL NOT ON MHT <11.0 - 58.3 pg/mL MALE <11.0 - 52.5 pg/mL NOTE:[employer] HAS CONFIRMED THE DRUG FULVETRANT (FASLODEX) MAY CAUSE FALSELY ELEVATED ESTRADIOL RESULTS WHEN USING THIS TEST METHOD. IF PATIENT IS TAKING FULVESTRANT AN ALTERNATIVE METHOD SHOULD BE USED TO DETERMINE ESTRADIOL CONCENTRATION. Serum or plasma folate measu rement (mass/volume)on 02-18-2022 Folate [Mass/Vol] 15.80 ng/mL 3.1-55.4 [facility] Work Phone: Serum or plasma low density lipoprotein (LDL) cholesterol measurement (mass/volume)on 02-18-2022 Cholesterol in LDL [Mass/Vol] 106 mg/dL 0-130 [facility] Work Phone: Serum or plasma progesterone measurement (mass/volume)on 02-18-2022 Progesterone [Mass/Vol] 1.02 ng/mL See Comment [facility] Work Phone: Comment on above: Progesterone Referen ce Table: UNITS Female: Follicular 0.15 - 1.40 ng/mL Luteal 3.34 - 25.56 ng/mL Mid-luteal 4.44 - 28.03 ng/mL Postmenopausal 0.0 - 0.73 ng/mL : 1st Trimester 11.22 - 90.00 ng/mL 2nd Trimester 25.55 - 89.40 ng/mL 3rd Trimester 48.40 -422.50 ng/mL Serum or plasma prolactin me asurement (mass/volume)on 02-18-2022 Prolactin [Mass/Vol] 7.9 ng/mL [facility] Work Phone: Comment on above: NORMAL REFERENCE RAN GES FEMALE NON- 2.2 - 30.3 ng/mL 8.1 - 347.6 ng/mL POST-MENOPAUSAL 0.7 - 31.5 ng/mL MALE 2.5 - 17.4 ng/mL Serum or plasma urea nitroge n measurement (mass/volume)on 02-18-2022 Urea nitrogen [Mass/Vol] 9 mg/dL 7-18 [facility] Work Phone: [phone] Thin prep Papanicolaou smear with manual screeningon 02-18-2022 Thin prep Papanicolaou smear with manual screening 14 U/L 15-37 [facility] Work Phone: Thin prep Papanicolaou smear with manual screening 8 -15 [facility] Work Phone: Whole blood hemoglobin A1c/t otal hemoglobin ratio (mass fraction)on 02-18-2022 HbA1c (Bld) [Mass fraction] 5.6 % 3.8-5.6 [facility] Work Phone: Comment on above: Normal < 5.7 % Predi abetic 5.7 - 6.4 % Diabetic >or= 6.5 % Please note range changes. Vital Signs Date Time Vital Sign Value Performing Clinician Faci lity 09-02-2024 03:01-0400 Body temperature 98.4 [degF] Dr. Delilah Quiroga MD Work Phone: [facility] 09-02-2024 03:01-0400 Diastolic blood pressure 62 mm[Hg] Dr. Delilah Quiroga MD Work Phone: [facility] 09-02-2024 03:01-0400 Heart rate 81 /min Dr. Delilah Quiroga MD Work Phone: [facility] 09-02-2024 03:01-0400 Respiratory rate 16 /min Dr. Delilah Quiroga MD Work Phone: [facility] 09-02-2024 03:01-0400 SaO2% (BldA) [Mass fraction] 99 % Dr. Delilah Quiroga MD Work Phone: [facility] 09-02-2024 03:01-0400 Systolic blood pressure 104 mm[Hg] Dr. Delilah Quiroga MD Work Phone: [facility] 09-01-2024 20:51-0400 Body height 180.[address] Delilah Quiroga MD Work Phone: [facility] 09-01-2024 20:51-0400 Body mass index (BMI) [Ratio] 25.1 kg/m2 Dr. Delilah Quiroga MD Work Phone: [facility] 09-01-2024 20:51-0400 Body weight 81.[address] Delilah Quiroga MD Work Phone: [facility] Encounters Encounter Date Encounter Type Care Provider Facility Start: 09-29-2024 End: 09-29-[address] Delilah Quiroga MD Work Phone: [facility] Work Phone: Start: 09-29-2024 End: 09-29-[address] Elmer Wilson MD -[facility] [place] Work Phone: Start: 09-29-2024 End: 09-29-2024 ambulatory Elmer Wilson Facility:[facility] Start: 09-03-2024 End: 09-03-[address] Delilah Quiroga MD Work Phone: [facility] Work Phone: Start: 09-03-2024 End: 09-03-[address] Elmer Wilson MD -[facility] Work Phone: Start: 09-03-2024 End: 09-03-2024 ambulatory Elmer Wilson Facility:[facility] Start: 09-01-2024 End: 09-02-2024 Emergency department patient visit Dr. Freddy Beltran DO -Emergency Department Work Phone: Start: 11-19-2023 End: 11-19-2023 ambulatory Delilah Quiroga Facility:[facility] Start: 11-11-2022 End: 11-11-2022 ambulatory [facility] Work Phone: Start: 11-11-2022 End: 11-11-2022 Patient encounter procedure [facility] Start: 02-18-2022 End: 02-18-2022 ambulatory [facility] Work Phone: Start: 02-18-2022 End: 02-18-2022 Patient encounter procedure [facility] Procedures Date Procedure Procedure Detail Performing Clinician Start: 09-29-[address] e detection Dr. Delilah Quiroga MD Work Phone: Start: 09-29-[address] Delilah Quiroga MD Work Phone: Start: 09-01-2024 Urnls dip stick/tabl et reagent auto microscopy Dr. Delilah Quiroga MD Work Phone: Start: 09-01-2024 Computed tomography of abdomen and pelvis with intravenous contrast Dr. Delilah Quiroga MD Work Phone: Start: 09-01-[address] Delilah Quiroga MD Work Phone: Plan of Treatment Date Care Activity Detail Author Start: 09-29-2024 Procedure [facility] Start: 09-02-2024 [facility] Start: 02-18-2022 Procedure [facility] Work Phone: Start: 02-18-2022 [facility] Work Phone: Dehydroepiandrostero ne sulfate (DHEA-S) [Mass/volume] in Serum or Plasma [facility] Work Phone: Patient Education ED Understandi ng Colitis ED Dehydration (Adult) [facility] Work Phone: Patient referral [facility] Work Phone: Procedure [facility] Work Phone: Sex hormone binding globulin [Moles/volume] in Serum or Plasma [facility] Work Phone: Testosterone Free [M ass/volume] in Serum or Plasma [facility] Work Phone: Testosterone measurement [facility] Work Phone: Payers Date Payer Category Payer Unknown [id number] 90 2023 Self-pay [id number] 58 2023 Unknown [id number] 2009 Unknown [id number] Unknown [id number] fb Unknown [employer] DO NOT USE [id number] Unknown [id number] Unknown [id number] Unknown [id number] Unknown [id number] Social History Date Type Detail Facility Start: 08-17-2018 Tobacco smoking stat [facility] Unknown if ever smoked [facility] Start: 10-03-2020 None [facility] Start: 1955 Sex Assigned At Male [facility] Start: 09-01-2024 Tobacco smoking stat [facility] Never smoked tobacco (finding) [facility] Evaluation note Note Date & Type Note Facility Evaluation note No assessment information availa ble [facility] Work Phone: Reason for referral (narrative) Note Date & Type Note Facility Reason for referral (narrative) No reason for referral information available [facility] Work Phone: Chief Complaint and Reason for Visit Chief Complaint Admit Date diarrhea September 01, 2024 8:4 9pm Abnormal levels of other serum enzymes M ay 2024 3:17pm Chief Complaint Admit Date diarrhea September 01, 2024 8:4 9pm Abnormal levels of other serum enzymes M ay 2024 3:17pm BROUGHT STOOL BACK September 29, 2024 9:29a m Advance Directives No Advanced Directives Records Found Advance Directive Response Recorded Date/ Time Do you have a Healthcare Power of [employer]? Yes September 01, 2024 9:04pm Summary Purpose Family History No Family History Records Found Additional Source Comments Goals (unrecognized section and content) Goals may be documented in a n alternate sectionGoals may be documented in an alternate sectionGoals may be documented in an alternate sectionGoals may be documented in an alternate section Care Teams (unrecognized sec tion and content) Team Status: Active Member Role Status Dates Dr. Delilah Quiroga MD Family Provider Active Dr. Delilah Quiroga MD Primary Care Provider Active Team Status: Inactive Member Role Status Dates Dr. Delilah Quiroga MD Primary Care Provider, Attendin g Provider Active Team Status: Active Member Role Status Dates Dr. Elmer Wilson MD Primary Care Provider Active Team Status: Inactive Member Role Status Dates Dr. Delilah Quiroga MD Primary Care Provider Active Start: September 01, 2024 End: September 02, 2024 Dr. Freddy Beltran DO Attending Provider Active Start: September 01, 2024 End: September 02, 2024 Dr. Freddy Beltran DO Emergency Provider Active Start: September 01, 2024 End: September 02, 2024 Team Status: Inactive Member Role Status Dates Dr. Elmer Wilson MD Primary Care Provider Active Start: September 03, 2024 End: September 03, 2024 Dr. Elmer Wilson MD Attending Provider Active Start: September 03, 2024 End: September 03, 2024 Dr. Elmer Wilson MD Referring Provider Active Start: September 03, 2024 End: September 03, 2024 Team Status: Inactive Member Role Status Dates Dr. Elmer Wilson MD Primary Care Provider Active Start: September 29, 2024 End: September 29, 2024 Dr. Elmer Wilson MD Attending Provider Active Start: September 29, 2024 End: September 29, 2024 Dr. Elmer Wilson MD Referring Provider Active Start: September 29, 2024 End: September 29, 2024 (unrecognized sect ion and content) No Status Records Found INFORMATION SOURCE (unrecogn ized section and content) DATE CREATED AUTHOR 10/11/2024 [facility] FOR RECORDS PERTAINING TO PATIENTS WHO ARE OR HAVE BEEN ENROLLED IN A CHEMICAL DEPENDENCY/SUBSTANCEABUSE PROGRAM, SOME INFORMATION MAY BE OMITTED. This clinical summary was aggregated from multiple sources. Caution should be exercised in using it in the provision of clinical care. This summary normalizes information from multiple sources, and as a consequence, information in this document may materially change the coding, format and clinical context of patient data. In addition, data may be omitted in some cases. CLINICAL DECISIONS SHOULD BE BASED ON THE PRIMARY CLINICAL RECORDS. [employer] [facility]. provides no warranty or guarantee of the accuracy or completeness of information in this document.
== END | disposition home or self-care (01) ==
LOC: MFPLAB 09:02
PROVIDERS: PCP Family Medicine; Referring Provider Family Medicine; Visit Provider Family Medicine
DX: R74.8 Abnormal levels of other serum enzymes (principal); Z12.5 Encounter for screening for malignant neoplasm of prostate
CPT/HCPCS: 36415; 80053; 80061; 84153; G0103

== ENCOUNTER → 2025-01-10 | Outpatient (CLI) | payer MEDICARE, SELFPAY ==
[2025-01-10 15:08] LABS: Hematocrit 46.6 % (40-54); Hemoglobin 15.7 g/dL (13.0-16.5); Immature Granulocytes Count 0.020 X10^3/uL (0.0-0.0); Mean Corp Hgb Conc 33.7 g/dL (32-36); Mean Corpuscular Volume 88.1 fL (80-94); Mean Platelet Vol. 11.7 fl (6.2-12.0); NRBC Flagged by Analyzer 0 % (0-5); Platelet Count 239 K/mm3 (150-450); RBC Distribution Width CV 12.5 % (11.6-14.6); RBC Distribution Width SD 40.7 fl (35.1-43.9); Red Blood Count 5.29 M/mm3 (4.6-6.2); White Blood Count 7.1 K/mm3 (4.4-11.0)
[2025-01-10 15:34] LABS: AST(SGOT) 20 U/L (<=37); Alanine Aminotransfer ALT/SGPT 20 U/L (<=46); Albumin, Serum 4.4 g/dL (3.4-4.8); Alkaline Phosphatase 63 U/L (40-129); Anion Gap 12 (5-15); BUN 13 mg/dL (4-19); BUN/Creat Ratio 12.0 RATIO (10-20); Calcium,Total 9.6 mg/dL (7.6-11.0); Carbon Dioxide 23.4 mmol/L (21.0-32.0); Chloride 103 mmol/L (98-108); Globulin 2.9 g/dL (2.2-4.2); Glucose 125 mg/dL (70-99); Potassium 4.0 mmol/L (3.3-5.1)
== END | disposition home or self-care (01) ==
LOC: MFPLAB 11:44
PROVIDERS: PCP Family Medicine
DX: R19.7 Diarrhea, unspecified (principal)
CPT/HCPCS: 36415; 80053; 85025; 87493